=== PATIENT | male | born 1940 | race Caucasian/White ===

== ENCOUNTER 2019-11-18 16:03 | Inpatient (IN) | payer OTHER ==
--- NOTE | 2019-11-18 17:12 | PDOC ---
Documentation entered by Caesar Jacobs SCRIBE, acting as scribe for Eda Shaikh MD. Eda Shaikh MD: This documentation has been prepared by the Zachery hoffman Angel, SCRIBE, under my direction and personally reviewed by me in its entirety. I confirm that the documentation accurately reflects all work, treatment, procedures, and medical decision making performed by me. Attending Attestation - Resident Resident Name: Allen Terrazas - ED Attending Attestation I have performed the following: I have examined & evaluated the patient, The case was reviewed & discussed with the resident, I agree w/resident's findings & plan, Exceptions are as noted - HPI HPI: 11/18/19 21:29 The patient is a 79 year old male with a significant past medical history of FTT, dementia, HTN, BPH, MDD, hypothyroidism, PVD who presents [facility] the [facility] from [facility] with 4 of coffee-ground emesis. Patient is unresponsive to name and is unable to provide history. - Physicial Exam PE: 11/18/19 21:[address] Whyte's physical exam cachetic 79 yo male BIBA from [facility] with report of coffee ground emesis head ncat extremities muscle wasting abdomen ++tenderness skin no lacerations, no abscesses neuro nonverbal at baseline 11/18/19 22:01 - Medical Decision Making 11/18/19 21:53 ct scan of abdomen/pelvic: reveals a small bowel obstruction pt admitted Discharge - Discharge Information Problems reviewed: Yes Clinical Impression/Diagnosis: SBO (small bowel obstruction) - Follow up/Referral - Patient Discharge Instructions - Post Discharge Activity
[2019-11-18 17:55] LABS: INR 1.13 (0.83-1.09); PROTHROMBIN TIME (PATIENT) 13.4 SEC (9.7-13.0)
[2019-11-18] MEDS ORDERED: SODIUM CHLORIDE 0.9% 500 ML INFUS.BAG IV ONE (17:55)
[2019-11-18] MEDS ORDERED: ONDANSETRON 4 MG/2 ML VIAL IVPUSH ONE (17:56)
[2019-11-18 17:58] LABS: ACTIVATED PTT 28.7 SECONDS (25.2-36.5)
[2019-11-18 17:59] LABS: BASO % 0.1 % (0-2.0); HEMATOCRIT 42.9 % (35.4-49); HEMOGLOBIN 14.5 GM/dL (11.7-16.9); LYMPH % 15.5 % (8-40); MCH 30.7 pg (25.7-33.7); MCHC 33.7 g/dl (32.0-35.9); MEAN CELL VOLUME 91.1 fl (80-96); MONO % 5.3 % (3.8-10.2); NEUT % 79.1 % (42.8-82.8); PLATELET COUNT 213 K/MM3 (134-434); RBC 4.71 M/mm3 (4.00-5.60); RDW 17.1 % (11.9-15.9); RETICULOCYTES 0.81 % (0.5-1.5); WHITE BLOOD COUNT 10.1 K/mm3 (4.0-10.0)
[2019-11-18 18:15] LABS: ALBUMIN 3.6 g/dl (3.4-5.0); ALK PHOS 86 U/L (45-117); ANION GAP 10 MMOL/L (8-16); BILIRUBIN,TOTAL 1.2 mg/dL (0.2-1); BLOOD UREA NITROGEN 44.9 mg/dL (7-18); CHLORIDE 104 mmol/L (98-107); CO2 28 mmol/L (21-32); CREATININE 1.2 mg/dL (0.55-1.3); GLUCOSE,RANDOM 156 mg/dL (74-106); POTASSIUM 3.9 mmol/L (3.5-5.1); SGOT/AST 13 U/L (15-37); SGPT/ALT 17 U/L (13-61); SODIUM 143 mmol/L (136-145); TOT PROT 7.5 g/dl (6.4-8.2)
--- NOTE | 2019-11-18 18:15 | PDOC ---
History of Present Illness - General Chief Complaint: Coffee Ground Emesis Stated Complaint: Nausea/Vomiting Time Seen by Provider: 11/18/19 16:33 - History of Present Illness Initial Comments: 11/18/19 18:07 79M with PMH of FTT, dementia, HTN, BPH, MDD, hypothyroidism, PVD send from [place] for 4 days of coffee-ground emesis. They did a KUB which was concerning for partial SBO. Patient is not responding to name, and unable to obtain history. Daughter at bedside states this is his baseline mental status. PMH/PSH: as above Home Medications Medication Instructions Recorded Ascorbic Acid [Vitamin C -] 500 mg PO DAILY 11/18/19 Cholecalciferol (Vitamin D3) 25 mcg PO DAILY 11/18/19 [Vitamin D3] Levothyroxine [Synthroid -] 25 mcg PO DAILY 11/18/19 Allergies Allergy/AdvReac Type Severity Reaction Status Date / Time No Known Allergies Allergy Verified 11/18/19 16:12 ROS: unable to obtain secondary to patient's mental status PE: General: not responding to verbal stimuli, cachectic, breathing comfortably, no acute distress HEENT: PERRLA, nares patent, some dried blood at lips Neck: no masses or JVD Heart: RRR, no murmurs Lungs: CTAB Abdomen: guarding. unable to assess tenderness Extremities: muscle wasting Neuro: moving all extremities Vital Signs Temp Pulse Resp BP Pulse Ox 99.2 F 126 H 20 131/93 95 11/18/19 16:14 11/18/19 16:14 11/18/19 16:14 11/18/19 16:14 11/18/19 16:14 MDM: 79M with PMH of FTT, dementia, HTN, BPH, MDD, hypothyroidism, PVD send from CT for 4 days of coffee-ground emesis. They did a KUB which was concerning for partial SBO. Vitals notable for tachycardia to 126. DDx includes SBO, infectious abdominal process, pneumonia, UTI, ulcer. -EKG -CXR -CBC, CMP, coags, T&S, UA/UC -CT A/P with IV contrast 11/18/19 22:58 EKG: Sinus tachycardia, rate 117, normal axis, QTc 446, no ischemic ST-T changes CXR: infiltrates suspicious for pneumonia CT A/P with IV contrast: CT A/P: distal SBO with promixal dilitation to 4cm Labs: WBC 10.1 without left shift, Hgb normal. BUN 44.9. No emergent values. Laboratory Tests 11/18/19 11/18/19 11/18/19 17:20 17:20 17:20 WBC 10.1 H RBC 4.71 Hgb 14.5 Hct 42.9 MCV 91.1 MCH 30.7 MCHC 33.7 RDW 17.1 H Plt Count 213 MPV 8.0 Absolute Neuts (auto) 8.0 Neutrophils % 79.1 Neutrophils % (Manual) 54.6 Band Neutrophils % 18.2 Lymphocytes % 15.5 Lymphocytes % (Manual) 22.2 Monocytes % 5.3 Monocytes % (Manual) 4 Eosinophils % 0.0 Eosinophils % (Manual) 0.0 Basophils % 0.1 Basophils % (Manual) 0.0 Myelocytes % (Man) 1 Promyelocytes % (Man) 0 Blast Cells % (Manual) 0 Nucleated RBC % 2 H Metamyelocytes 0 Hypochromia 0 Toxic Granulation 0 Dohle Bodies 0 Platelet Estimate Normal Polychromasia 0 Poikilocytosis 0 Basophilic Stippling 0 Anisocytosis 0 Microcytosis 0 Macrocytosis 0 Spherocytes 0 Sickle Cells 0 Target Cells 0 Tear Drop Cells 0 Ovalocytes 0 Stomatocytes 0 Helmet Cells 0 [place] Bodies 0 [place] Rings 0 Sherri Cells 0 Acanthocytes (Spur) 0 Rouleaux 0 Fragmented RBCs 0 Schistocytes 0 Retic Count 0.81 PT with INR 13.40 H INR 1.13 H PTT (Actin FS) 28.7 Sodium 143 Potassium 3.9 Chloride 104 Carbon Dioxide 28 Anion Gap 10 BUN 44.9 H Creatinine 1.2 Est GFR (CKD-EPI)AfAm 67.20 Est GFR (CKD-EPI)NonAf 57.98 Random Glucose 156 H Calcium 10.0 Total Bilirubin 1.2 H AST 13 L ALT 17 Alkaline Phosphatase 86 Creatine Kinase 52 Troponin I < 0.02 Total Protein 7.5 Albumin 3.6 Blood Type Antibody Screen Will admit for SBO and pneumonia. Will cover with vanc/zosyn/azithro Spoke with surgeon and daughter. Plan for NG tube suction, CT A/P with oral contrast through NG tube, and possible surgical intervention. Patient had a rectal temp of 100.6, and is therefore septic. Antibiotics already on board -Given 1000mg tylenol IV Failed to pass NG tube Signed out to admitting team who accepted the patient Past History - Medical History Allergies/Adverse Reactions: Allergies Allergy/AdvReac Type Severity Reaction Status Date / Time No Known Allergies Allergy Verified 11/18/19 16:12 Home Medications: Ambulatory Orders Ascorbic Acid [Vitamin C -] 500 mg PO DAILY 11/18/19 Cholecalciferol (Vitamin D3) [Vitamin D3] 25 mcg PO DAILY 11/18/19 Levothyroxine [Synthroid -] 25 mcg PO DAILY 11/18/19 COPD: (dysphagia) HTN: Yes Seizures: Yes (depression) Thyroid Disease: Yes (hypo) Other medical history: failure to thrive PVD - Psycho-Social/Smoking History Smoking History: Smoker current status UNK Have you smoked in the past 12 months: No Information on smoking cessation initiated: No - Substance Abuse Hx (Audit-C & DAST Scrn) How often the patient has a drink containing alcohol: Never Score: In Men: 4 or > Positive; In Women: 3 or > Positive: 0 Screen Result (Pos requires Nsg. Audit-10AR): Negative In the last yr the pt used illegal drug/Rx for NonMed reason: No Score: Yes response is considered Positive: 0 Screen Result (Positive result requires Nsg. DAST-10): Negative *Physical Exam - Vital Signs Last Vital Signs Temp Pulse Resp BP Pulse Ox 99.2 F 126 H 20 131/93 95 11/18/19 16:14 11/18/19 16:14 11/18/19 16:14 11/18/19 16:14 11/18/19 16:14 ED Treatment Course - LABORATORY CBC & Chemistry Diagram: 11/19/19 05:30 11/19/19 05:30 - ADDITIONAL ORDERS Additional order review: Laboratory Results 11/18/19 17:20 PT with INR 13.40 H INR 1.13 H PTT (Actin FS) 28.7 11/18/19 17:20 RBC 4.71 MCV 91.1 MCHC 33.7 RDW 17.1 H MPV 8.0 Neutrophils % 79.1 Lymphocytes % 15.5 Monocytes % 5.3 Eosinophils % 0.0 Basophils % 0.1 - RADIOLOGY Radiology Studies Ordered: Category Date Time Status ABDOMEN & PELVIS CT WITH CONTR [CT] Stat CT Scan 11/18/19 17:53 Ordered - Medications Given in the ED: ED Medications Discontinued Medications Generic Name Dose Route Start Last Admin Trade Name Adamq PRN Reason Stop Dose Admin Ondansetron HCl 4 mg 11/18/19 17:56 11/18/19 18:02 Zofran Injection IVPUSH 11/18/19 17:57 4 mg ONCE ONE Administration Sodium Chloride 1,000 ml 11/18/19 17:55 11/18/19 18:02 Normal Saline - IV 11/18/19 17:56 1,000 ml ONCE ONE Administration Discharge - Discharge Information Problems reviewed: Yes Clinical Impression/Diagnosis: SBO (small bowel obstruction) Pneumonia Qualifiers: Pneumonia type: due to unspecified organism Laterality: unspecified laterality Lung location: unspecified part of lung Qualified Code(s): J18.9 - Pneumonia, unspecified organism - Follow up/Referral - Patient Discharge Instructions - Post Discharge Activity
--- OUTSIDE RECORDS SUMMARY | 2019-11-18 18:45 | XMS ---
:1940 Author Organization [facility] Care Team Providers Name Role Phone NIKKI MO Unavailable Unavailable Kolanuvada Unavailable [email or web address] Kolanuvada Unavailable [email or web address] Kolanuvada Unavailable [email or web address] Kolanuvada Unavailable [email or web address] Kolanuvada Unavailable [email or web address] Kolanuvada Unavailable [email or web address] Kolanuvada Unavailable [email or web address] Kolanuvada Unavailable [email or web address] Re-disclosure Warning The records that you are about to access may contain information from federally- assisted alcohol or drug abuse programs. If such information is present, then the following federally mandated warning applies: This information has been disclosed to you from records protected by federal confidentiality rules (42 CFR part 2). The federal rules prohibit you from making any further disclosure of this information unless further disclosure is expressly permitted by the written consent of the person to whom it pertains or as otherwise permitted by 42 CFR part 2. A general authorization for the release of medical or other information is NOT sufficient for this purpose. The Federal rules restrict any use of the information to criminally investigate or prosecute any alcohol or drug abuse patient.The records that you are about to access may contain highly sensitive health information, the redisclosure of which is protected by Article 27-F of the [facility] Public Health law. If you continue you may haveaccess to information: Regarding HIV / AIDS; Provided by facilities licensed or operated by the [facility] Office of Mental Health; or Provided by the [facility] Office for People With Developmental Disabilities. If such information is present, then the following [facility] mandated warning applies: This information has been disclosed to you from confidential records which are protected by state law. State law prohibits you from making any further disclosure of this information without the specific written consent of the person to whom it pertains, or as otherwise permitted by law. Any unauthorized further disclosure in violation of state law may result in a fine or shelter sentence or both. A general authorization for the release of medical or other information is NOT sufficient authorization for further disclosure. Allergies and Adverse Reactions Type Description Substance Reaction Status Data Source(s ) No Known Allergies No Known Allergies PCC ([facility]) To Be Determined To Be Determined PC C ([facility]) Encounters Encounter Providers Location Date Indications Data Source(s ) Inpatient Attender: Shante 05/27/2019 PCC ([facility]o 04:00:00 PM [facility]) EDT Patient admitted. Inpatient 08/29/2018 08:14:00 [facility] Inpatient 08/29/2018 08:14:00 [facility] Inpatient Attender: CHEPE 08/19/2018 03:05:00 ALEJANDRO,HYPOTH [facility] PM EDT - 08/23/2018 [facility] 07:50:00 PM EDT [facility] [employer] [employer] ALEJANDRO,HYPOTHYRODISM,DEMENTI Outpatient Attender: CHEPE 08/18/2018 ALEJANDRO,HYPOTHYRODISM,D EMENTI [facility] 03:43:00 AM EDT [facility] ALEJANDRO,HYPOTHYRODISM,DEMENTI Emergency 08/17/2018 06:59:00 PM EDT DIMENTIA AND FALL [facility] Corporati on DIMENTIA AND FALL Medications Medication Brand Start Product Dose Route Administrative Pharmacy [facility] Indications Reaction Description Data Name Date Form Instructions Instructions Source(s) Tamsulosin 987359 complet [place] [0.4 mg 546 ed [facility] Capsule Health SR]: 0.4 MG Care Oral Q10PM Corporati o n Discharge complet [facility] celine Medications ed [facility] are Health [facility] Care . Corporatio n 24 HR Memant complet [place] e Memantine ine ed [facility] hydrochlori [28 Health de 28 MG mg]: 1 Care Extended Capsul Corporati o Release e Oral n Oral DAILY Capsule Memantine [28 mg]: 1 Capsule Oral DAILY Levothyroxi Levo-T complet [place] ne Sodium (Levot ed [facility] 0.05 MG hyroxi Health Oral Tablet ne) Care Levo-T [50 Corporatio (Levothyrox mcg n ine) [50 Tablet mcg ]: 1 Tablet]: 1 Tablet Tablet Oral Oral DAILY DAILY Aspirin 81 Aspir- complet [place] MG Delayed Low ed [facility] Release (Aspir Health Oral Tablet in) Care Aspir-Low [81 Corporatio (Aspirin) mg]: 1 n [81 mg]: 1 Tablet Tablet Oral Oral DAILY DAILY PRINIVIL complet [place] EQUIV (Free ed r [facility] Text Health Medication) Care [20 MG Corporatio Tablet]: 20 n MG Oral Q10AM WATER complet [place] (ORAL) ed [facility] (Free Text Health Medication) Care [250 ML Corporatio Bottle]: n 250 ML Oral Q6H quetiapine Quetia complet [place] 50 MG Oral pine [facility] Tablet [50 mg Health Quetiapine Tablet Care [50 mg ]: 50 Corporatio Tablet]: 50 MG n MG Oral Oral Q12H Q12H Insurance Providers Payer name Policy type Policy ID Covered Covered republican's Policy P jovi / Coverage republican ID relationship to [employer] ormation type marinelli Medicaid FIELD [facility] None Problems, Conditions, and Diagnoses Code Display Name Description Problem Type Effective Data Sour ce(s) Dates I73.9 Peripheral PERIPHERAL Diagnosis 09/24/2019 P[facility] ([facility] 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 thrive THRIVE 12:00:00 AM [facility] EDT Home) I11.9 Hypertensive heart HYPERTENSIVE HEART Diagnosis 0 PCC ([facility] disease without DISEASE WITHOUT 12:00:00 AM [facility] heart failure HEART FAILURE EDT Home) E03.9 Hypothyroidism, HYPOTHYROIDISM, Diagnosis 05/27/2019 PCC (St. unspecified UNSPECIFIED 12:00:00 AM [facility] EDT Home) F32.9 Major depressive MAJOR DEPRESSIVE Diagnosis 05/27/2019 PC C (St. disorder, single DISORDER, SINGLE 12:00:00 AM [facility] episode, EPISODE, EDT Home) unspecified UNSPECIFIED N40.0 Benign prostatic BENIGN PROSTATIC Diagnosis 05/27/2019 PC C (St. hyperplasia HYPERPLASIA 12:00:00 AM [facility] without lower WITHOUT LOWER EDT Home) urinary tract URINARY TRACT symptoms SYMPTOMS R13.10 Dysphagia, DYSPHAGIA, Diagnosis 05/27/2019 PCC (St. unspecified UNSPECIFIED 12:00:00 AM [facility] EDT Home) F03.90 Unspecified UNSPECIFIED Diagnosis 05/27/2019 PCC (St. 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 08/23/2018 [place] (current) use of (CURRENT) USE OF 07:50:00 PM [employer] aspirin ASPIRIN EDT [facility] G30.9 Alzheimer's ALZHEIMER'S Diagnosis 08/23/2018 [place] disease, DISEASE, 07:50:00 PM [facility] unspecified UNSPECIFIED EDT [facility] R33.9 Retention of RETENTION OF Diagnosis 08/23/2018 [facility] r urine, unspecified URINE, UNSPECIFIED 07:50:00 PM [facility] EDT [facility] E86.0 Dehydration DEHYDRATION Diagnosis 08/23/2018 [place] 07:50:00 PM [facility] EDT [facility] I10 Essential ESSENTIAL Diagnosis 08/23/2018 [place] (primary) (PRIMARY) 07:50:00 PM [facility] hypertension HYPERTENSION EDT [facility] E03.9 Hypothyroidism, HYPOTHYROIDISM, Diagnosis 08/23/2018 [employer] unspecified UNSPECIFIED 07:50:00 PM [facility] th EDT [facility] F02.81 Dementia in other DEMENTIA IN OTH Diagnosis 08/23/2018 [facility] DISEASES CLASSD 07:50:00 PM [facility] classified ELSWHR W EDT Care elsewhere with BEHAVIORAL DISTURB Co rporation behavioral disturbance N17.9 Acute kidney ACUTE KIDNEY Diagnosis 08/23/2018 Pankaj r failure, FAILURE, 07:50:00 PM [facility] unspecified UNSPECIFIED EDT [employer] F01.51 Vascular dementia VASCULAR DEMENTIA Diagnosis 08/19/2018 [place] with behavioral WITH BEHAVIORAL 03:05:00 PM [facility] disturbance DISTURBANCE EDT Care [facility]UO Results ID Date Data Source [id number] 06/25/2019 12:00:00 PM EDT [facility] Name Value Range Interpretation Description Data Sup porting Code Source(s) Document(s ) SARS CoV-2 [facility] Interpretation This lab was ordered by [facility] and reported by [employer]. ID Date Data Source [id number] 08/23/2018 06:09:58 PM EDT [facility] [id number] Corporation Name Value Range Interpretation Description Data Sup porting Code Source(s) Document(s ) Renal/ (PACSIMAGE <td> 08/22/2018 [place] [facility] 11:23</td><td> [facility] ) Final Renal/Bladder US Care Result </td><td>Tomorrow Name: anabela SEYMOUR MRN: styleCode="Itali [id number] Sex: M cs">(PACSIMAGE : 1940 Location: Admitting )</paragraph><br Physician: />
Final TEJINDERPAL Result MO

Requesting Name: Physician LION: ALEJANDRINA HOLLAND
MRN: Exam: US [id number] Sex: M BLADDER/RENAL
08/22/2018 11:39 : CLINICAL 1940 INFORMATION: ALEJANDRO Location: TECHNIQUE:
Sonogram of the Admitting kidneys and Physician: bladder with TEJINDERPAL silva scale MO images and color
Doppler flow. Requesting COMPARISON: Physician: 08/19/2018 CARLOS HOLLAND FINDINGS: The right kidney

is small, with Exam: US relatively BLADDER/RENAL normal 08/22/2018 11:39 echotexture, measuring 8.8 cm

in longitudinal CLINICAL dimension; INFORMATION: ALEJANDRO correlate with patient's body

habitus. No TECHNIQUE: right-sided Sonogram of the hydronephrosis kidneys and is visualized. bladder with The left silva scale kidney is small,
with relatively images and color normal Doppler flow. echotexture, measuring 8.3 cm

in longitudinal COMPARISON: dimension; 08/19/2018 correlate with

patient body FINDINGS: habitus. No

left-sided The right hydronephrosis kidney is small, is visualized. with relatively The urinary normal bladder is echotexture, decompressed,
limiting measuring 8.8 cm assessment. in longitudinal IMPRESSION: dimension; No correlate with hydronephrosis. patient's
Resident body habitus. No Radiologist: right-sided Patel Mejía hydronephrosis Resident is visualized. Radiologistt Attending

Radiologist: The left kidney Beatris Moore is small, with MD Finalizing relatively Radiologist: normal Beatris Moore echotexture, Transcribed
Date: 08/22/2018 measuring 8.3 cm 11:42 in longitudinal Finalized Date: dimension; 08/22/2018 13:03 correlate with patient
body habitus. No left-sided hydronephrosis is visualized.

The urinary bladder is decompressed, limiting assessment.

IMPRESSION:

No hydronephrosis.

< br/>

<b r/> Resident Radiologist: Ptael Mejía MD Resident Radiologistt
Attending Radiologist: Beatris Moore MD
Finalizing Radiologist: Beatris Moore MD
Transcribed Date: 08/22/2018 11:42
Finalized Date: 08/22/2018 13:03

</td> ID Date Data Source [id number] 08/23/2018 06:09:58 PM EDT [facility] [id number] Corporation Name Value Range Interpretation Description Data Sup porting Code Source(s) Document(s ) Magnesium 2.1 mg/dL 1.6-2.6 <td> [place] [Mass/volume] mg/dL 08/17/2018 [facility] in Serum or 23:39</td><td Health Care Plasma > Magnesium Corporation Level </td><td> 2.1
(1.6-2.6) mg/dL </td> Leukocytes 7.3 k/mm3 4.8-10. <td> [place] [#/volume] in 8 k/mm3 08/23/2018 [facility] Blood by 06:45</td><td Health Care Automated count > WBC Corporation </td><td> 7.3
(4.8-10.8) k/mm3 </td> Erythrocyte 31.8 pg 27.0-31 <td> [place] mean .5 pg 08/23/2018 [facility] corpuscular 06:45</td><td Health Care hemoglobin > MCH [employer] [Entitic mass] </td><td><par by Automated agraph count styleCode="Devon ld"> 31.8 H </paragraph>< br/> (27.0-31.5) pg </td> Erythrocyte 98.1 fL 80.0-94 <td> [place] mean .0 fL 08/23/2018 [facility] corpuscular 06:45</td><td Health Care volume [Entitic > MCV Corporation volume] by </td><td><par Automated count agraph styleCode="Devon ld"> 98.1 H </paragraph>< br/> (80.0-94.0) fL </td> Erythrocytes 3.74 m/mm3 4.70-6. <td> [place] [#/volume] in 10 08/23/2018 [facility] Blood m/mm3 06:45</td><td Health Care > RBC Corporation </td><td><par agraph styleCode="Devon ld"> 3.74 L </paragraph>< br/> (4.70-6.10) m/mm3 </td> Hematocrit 36.7 % 40.8-46 <td> [place] [Volume .9 % 08/23/2018 [facility] of 06:45</td><td Health Care Blood by > HCT Corporation Automated count </td><td><par agraph styleCode="Devon ld"> 36.7 L </paragraph>< br/> (40.8-46.9) % </td> Erythrocyte 32.4 % 32.0-36 <td> [place] mean .0 % 08/23/2018 [facility] corpuscular 06:45</td><td Health Care hemoglobin > MCHC FAGUO concentration </td><td> [Mass/volume] in Blood from 32.4 Fetus by Automated count
(32.0-36.0) % </td> Hemoglobin 11.9 g/dL 14.0-18 <td> [place] [Mass/volume] .0 g/dL 08/23/2018 [facility] in Blood 06:45</td><td Health Care > HGB Corporation </td><td><par agraph styleCode="Devon ld"> 11.9 L </paragraph>< br/> (14.0-18.0) g/dL </td> Sodium 138 mEq/L 135-145 <td> [place] [Moles/volume] mEq/L 08/23/2018 [facility] in Serum or 06:44</td><td Health Care Plasma > F[facility] Sodium-Serum </td><td> 138
(135-145) mEq/L </td> Glucose 91 mg/dL 70-105 <td> [place] [Mass/volume] mg/dL 08/23/2018 [facility] in Blood 06:44</td><td Health Care > FAGUO Glucose-Serum </td><td> 91
(70-105) mg/dL </td> Platelet mean 10.9 fL 9.8-12. <td> [place] volume [Entitic 8 fL 08/23/2018 [facility] volume] in 06:45</td><td Health Care Blood by > MPV FAGUO Automated count </td><td> 10.9
(9.8-12.8) fL </td> Erythrocyte 12.8 % 11.5-14 <td> [place] distribution .5 % 08/23/2018 [facility] width [Entitic 06:45</td><td Health Care volume] by > RDW Corporation Automated count </td><td> 12.8
(11.5-14.5) % </td> Platelets 183 k/mm3 160-410 <td> [place] [#/volume] in k/mm3 08/23/2018 [facility] Blood by 06:45</td><td Health Care Automated count > Platelet Corporation Count </td><td> 183
(160-410) k/mm3 </td> Chloride 107 mEq/L 98-107 <td> [place] [Moles/volume] mEq/L 08/23/2018 [facility] in Serum or 06:44</td><td Health Care Plasma > Chloride Corporation </td><td> 107
(98-107) mEq/L </td> Potassium 4.6 mEq/L 3.5-5.1 <td> [place] [Moles/volume] mEq/L 08/23/2018 [facility] in Serum or 06:44</td><td Health Care Plasma > Corporation Potassium-Ser um </td><td> 4.6
(3.5-5.1) mEq/L </td> Carbon dioxide, 24 mEq/L 22-30 <td> [place] total mEq/L 08/23/2018 [facility] [Moles/volume] 06:44</td><td Health Care in Serum or > CO2 Corporation Plasma </td><td> 24
(22-30) mEq/L </td> Anion gap in 7 mEq/L 7-13 <td> [place] Serum or Plasma mEq/L 08/23/2018 [facility] 06:44</td><td Health Care > Anion Gap FAG[facility]O </td><td> 7
(7-13) mEq/L </td> Urea nitrogen 45 mg/dL 6-22 <td> [place] [Mass/volume] mg/dL 08/23/2018 [facility] in Blood 06:44</td><td Health Care > BUN [facility] </td><td><par agraph styleCode="Devon ld"> 45 H </paragraph>< br/> (6-22) mg/dL </td> Creatinine 1.06 mg/dL 0.72-1. <td> [place] [Moles/volume] 25 08/23/2018 [facility] in Serum or mg/dL 06:44</td><td Health Care Plasma > Creatinine. Corporation </td><td> 1.06
(0.72-1.25) mg/dL </td> Hemolysis index No <td> [facility] Serum or Hemolysis 08/23/2018 [facility] Plasma 06:44</td><td Health Care > Hemolysis Corporation Index </td><td> No Hemolysis
</td> Calcium 9.4 mg/dL 8.6-10. <td> [place] [Mass/volume] 2 mg/dL 08/23/2018 [facility] in Blood 06:44</td><td Health Care > Calcium Corporation </td><td> 9.4
(8.6-10.2) mg/dL </td> Lipemic index No Lipemia <td> [facility] or 08/23/2018 [facility] Plasma 06:44</td><td Health Care > Lipemia Corporation Index </td><td> No Lipemia
</td> Icteric index Not Icteric <td> [facility] or 08/23/2018 [facility] Plasma 06:44</td><td Health Care > Icteric Corporation Index </td><td> Not Icteric
</td> Glucose Negative <td> [place] [Presence] in 08/22/2018 [facility] Urine by Test 12:10</td><td Health Care strip > Glucose_ Corporation </td><td> Negative
(NEGATIVE) </td> Protein Negative <td> [place] [Presence] in 08/22/2018 [facility] Urine by 12:10</td><td Health Care Automated test > Protein Corporation strip Qualitative </td><td> Negative
(NEGATIVE) </td> Phosphate 3.2 mg/dL 2.3-4.7 <td> [place] [Mass/volume] mg/dL 08/23/2018 [facility] in Serum or 06:44</td><td Health Care Plasma > Inorganic Corporation Phosphorus </td><td> 3.2
(2.3-4.7) mg/dL </td> Specific 1.023 {} 1.000-1 <td> [place] gravity of .035 08/22/2018 [facility] Urine by Test 12:10</td><td Health Care strip > Specific Corporation [place] </td><td> 1.023
(1.000-1.035) </td> Appearance of Clear <td> [place] Urine 08/22/2018 [facility] 12:10</td><td Health Care > Appearance Corporation </td><td> Clear
(CLEAR) </td> Leukocyte Negative <td> [place] esterase 08/22/2018 [facility] [Presence] in 12:10</td><td Health Care Urine by Test > Leukocytes Corporation strip Esterase </td><td> Negative
(NEGATIVE) </td> Urobilinogen 0.2 mg/dL 0.0-2.0 <td> [place] [Presence] in mg/dL 08/22/2018 [facility] Urine by 12:10</td><td Health Care Automated test > Corporation strip Urobilinogen </td><td> 0.2
(0.0-2.0) mg/dL </td> Leukocytes 3 /HPF 0-5 <td> [place] [Presence] in /HPF 08/22/2018 [facility] Urine by 12:10</td><td Health Care Automated > WBC Corporation </td><td> 3
(0-5) /HPF </td> Epithelial RARE <td> [place] cells [#/area] FEW 08/22/2018 [facility] in Urine 12:10</td><td Health Care sediment by > Epithelial Corporation Automated count Cells </td><td> RARE
/LPF
FEW

/LPF </td> Bacteria RARE <td> [place] [#/area] in 08/22/2018 [facility] Urine sediment 12:10</td><td Health Care by Microscopy > Bacteria Corporation high power </td><td> field RARE
(NONE SEEN) /HPF </td> Nitrite Negative <td> [place] [Presence] in 08/22/2018 [facility] Urine by Test 12:10</td><td Health Care strip > Nitrites Corporation </td><td> Negative
(NEGATIVE) </td> Erythrocytes 1 /HPF 0-2 <td> [place] [#/area] in /HPF 08/22/2018 [facility] Urine sediment 12:10</td><td Health Care by Automated > RBC Corporation count </td><td> 1
(0-2) /HPF </td> Magnesium 2.2 mg/dL 1.6-2.6 <td> [place] [Mass/volume] mg/dL 08/23/2018 [facility] in Serum or 06:44</td><td Health Care Plasma > Magnesium [employer] Level </td><td> 2.2
(1.6-2.6) mg/dL </td> Mucous RARE <td> [place] < FEW 08/22/2018 [facility] 12:10</td><td Health Care > Mucous Corporation </td><td> RARE
/LPF
< FEW

/LPF </td> Hyaline casts 1.00 /LPF NONE <td> [place] [#/area] in SEEN 08/22/2018 [facility] Urine sediment /LPF 12:10</td><td Health Care by Microscopy > Hyaline Corporation high power Cast field </td><td> 1.00
(NONE SEEN) /LPF </td> ID Date Data Source [id number] 08/18/2018 09:45:04 AM EDT [facility] [id number] Corporation Name Value Range Interpretation Description Data Source(s ) Supporting Code Document(s ) ABO-Rh Type A NEG <td> [place] 08/17/2018 [facility] 23:50</td><td> Care ABO-Rh Type Corporation </td><td> A NEG
</td> Specimen 08/21/19 <td> [place] expiration 19 23:59 08/17/2018 [facility] date of Blood 23:50</td><td> Care Specimen Corporation Expiration Date </td><td> 08/20/2018 23:59
</td> Antibody NEG <td> [place] Screen 08/17/2018 [facility] 23:50</td><td> Care Antibody Corporation Screen </td><td> NEG
</td> Procedure Social History Code Duration Value Status Description Data Source(s ) Smoking Never smoker completed Never smoker [facility] Vital Signs ID Date Data Source UNK Name Value Range Interpretation Code Description Data Source(s) Diastolic blood 56 {} Normal (applies to 56 {} [place] pressure non-numeric results) [facility] ty [facility] Corpor[facility] on Systolic blood 100 {} Normal (applies to 100 {} [place] pressure non-numeric results) Coun ty [facility] Care Corporati on First Respiration 16.0000 {} Normal (applies to 16.0000 {} [place] rate Set non-numeric results) Coun ty Health Care Corporati on Heart rate 74.0000 {} Normal (applies to 74.0000 {} [place] non-numeric results) Coun ty [facility] Care Corporati on Body temperature 97.2000 {} Normal (applies to 97.2000 {} [place] non-numeric results) Coun ty Health Care Corporati on Diastolic blood 66 {} Normal (applies to 66 {} [place] pressure non-numeric results) Coun ty [facility] Care Corporati on Systolic blood 112 {} Normal (applies to 112 {} [place] pressure non-numeric results) Coun ty Health Care Corporati on First Respiration 18.0000 {} Normal (applies to 18.0000 {} [place] rate Set non-numeric results) Coun ty [facility] Care Corporati on Heart rate 73.0000 {} Normal (applies to 73.0000 {} [place] non-numeric results) Coun ty [facility] Care Corporati on Body temperature 98.1000 {} Normal (applies to 98.1000 {} [place] non-numeric results) Coun ty Health Care Corporati on wt - obtain Normal (applies to {} [place] non-numeric results) Coun ty Health Care Corporati on weight - kg 60.0000 {} Normal (applies to 60.0000 {} [place] non-numeric results) Coun ty Health Care Corporati on
[2019-11-18 20:30] LABS: ANISOCYTOSIS 0; HELMET CELLS 0; HOWELL-JOLLY BODIES 0; MACROCYTOSIS 0; OVALOCYTE 0; PLATELET ESTIMATE NORMAL; ROULEAU 0; SICKELED CELLS 0; TARGET CELLS 0; TEAR DROP CELLS 0; TOXIC GRANULATION 0
[2019-11-18] MEDS ORDERED: VANCOMYCIN 1 GM in D5W (PRE-DOCKED) 1,000 MG/250 ML IVPB ONE (21:06)
[2019-11-18] MEDS ORDERED: PIPERACILLIN/TAZOB 4.5 GM 4.5 GM in DEXTROSE 5%-WATER 100 ML IVPB ONE (21:07)
[2019-11-18] MEDS ORDERED: AZITHROMYCIN IVPB 500 MG in DEXTROSE 5%-WATER - 250 ML IVPB ONE (21:08)
[2019-11-18] MEDS ORDERED: AZITHROMYCIN IVPB 500 MG/250 ML BAG IVPB ONE (21:25)
[2019-11-18] MEDS ORDERED: VANCOMYCIN 1 GRAM (PRE-DOCKED) 1,000 MG/250 ML BAG IVPB ONE ×2 (21:25→21:47)
[2019-11-18] MEDS ORDERED: PIPERACILLIN/TAZOB 4.5 GM 4.5 GM/100 ML BAG IVPB ONE (21:25)
--- OUTSIDE RECORDS SUMMARY | 2019-11-18 21:58 | XMS ---
:1940 Author Organization [facility] Care Team Providers Name Role Phone NIKKI MO Unavailable Unavailable Kolanuvada Unavailable [email or web address] Kolanuvada Unavailable [email or web address] Kolanuvada Unavailable [email or web address] Kolanuvada Unavailable [email or web address] Kolanuvada Unavailable [email or web address] Kolanuvada [...] is protected by Article 27-F of the [place] State Public Health law. If you continue you may haveaccess to information: Regarding HIV / AIDS; Provided by facilities licensed or operated by the [facility] Office of Mental Health; or Provided by the [facility] Office for People With Developmental Disabilities. If such information is present, then the following [facility] mandated warning applies: This information has been [...] law may result in a fine or fpc sentence or both. A general authorization for the release of medical or other information is NOT sufficient authorization for further disclosure. Allergies and Adverse Reactions Type Description Substance Reaction Status Data Source(s ) No Known Allergies No Known Allergies PCC ([facility]) To Be Determined To Be Determined PC C ([facility]) Encounters Encounter Providers Location Date Indications Data Source(s ) Inpatient Attender: Arminblayne 05/27/2019 PCC ([facility] Krystleeveliotiff 04:00:00 PM [facility]) EDT Patient admitted. Inpatient 08/29/2018 08:14:00 [facility] Inpatient 08/29/2018 08:14:00 [facility] Inpatient Attender: CHEPE 08/19/2018 03:05:00 ALEJANDRO,HYPOTH [facility] PM EDT - 08/23/2018 [facility] 07:50:00 PM EDT [facility] on ALEJANDRO,HYPOTHYRODISM,DEMENTI Outpatient Attender: CHEPE 08/18/2018 ALEJANDRO,HYPOTHYRODISM,D EMENTI [facility] 03:43:00 AM EDT [facility] ALEJANDRO,HYPOTHYRODISM,DEMENTI Emergency 08/17/2018 06:59:00 PM EDT DIMENTIA AND F[facility] DIMENTIA AND FALL Medications Medication Brand Start Product Dose Route Administrative Pharmacy [facility] Indications Reaction Description Data Name Date Form Instructions Instructions Source(s) Tamsulosin [id number] complet [place] [0.4 mg 546 ed [facility] Capsule Health SR]: 0.4 MG Care Oral Q10PM Corporati o n Discharge complet [facility] celine Medications ed [facility] are Health [facility] Care . Corporatio n 24 HR Memant complet [place] e Memantine ine ed [facility] hydrochlori [28 Health de 28 MG mg]: 1 Care Extended Capsul Corporati o Release e Oral n Oral DAILY Capsule Memantine [28 mg]: 1 Capsule Oral DAILY Levothyroxi Levo-T complet [place]ste ne Sodium (Levot ed [facility] 0.05 MG hyroxi Health Oral Tablet ne) Care Levo-T [50 Corporatio (Levothyrox mcg n ine) [50 Tablet mcg ]: 1 Tablet]: 1 Tablet Tablet Oral Oral DAILY DAILY Aspirin 81 Aspir- complet [place] MG Delayed Low ed [facility] Release (Aspir Health Oral Tablet in) Care Aspir-Low [81 Corporatio (Aspirin) mg]: 1 n [81 mg]: 1 Tablet Tablet Oral Oral DAILY DAILY PRINIVIL complet [place] te EQUIV (Free ed [facility] Text Health Medication) Care [20 MG Corporatio Tablet]: 20 n MG Oral Q10AM WATER complet [place] (ORAL) ed [facility] ([facility] Text Health Medication) Care [250 ML Corporatio Bottle]: n 250 ML Oral Q6H quetiapine Quetia complet [place] 50 MG Oral pine [facility] Tablet [50 mg Health Quetiapine Tablet Care [50 mg ]: 50 Corporatio Tablet]: 50 MG n MG Oral Oral Q12H Q12H Insurance Providers Payer name Policy type Policy ID Covered Covered alliance party's Policy P jovi / Coverage alliance party ID relationship to [employer] [facility] ormation type marinelli MEDICAID [id number] SP [id number] MEDICARE [id number] SP [id number] [facility] None Problems, Conditions, and Diagnoses Code [...] (St. 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 08/23/2018 [place] (current) use of (CURRENT) USE OF 07:50:00 PM [facility] aspirin ASPIRIN EDT [facility] G30.9 Alzheimer's ALZHEIMER'S Diagnosis 08/23/2018 [place] disease, DISEASE, 07:50:00 PM [facility] unspecified UNSPECIFIED EDT [facility] R33.9 Retention of RETENTION OF Diagnosis 08/23/2018 [facility] r urine, unspecified URINE, UNSPECIFIED 07:50:00 PM [facility] EDT [facility] E86.0 Dehydration DEHYDRATION Diagnosis 08/23/2018 [place] 07:50:00 PM [facility] EDT [facility] I10 Essential ESSENTIAL Diagnosis 08/23/2018 [place] (primary) (PRIMARY) 07:50:00 PM [facility] hypertension HYPERTENSION EDT [facility] E03.9 Hypothyroidism, HYPOTHYROIDISM, Diagnosis 08/23/2018 [facility] unspecified UNSPECIFIED 07:50:00 PM [facility] th EDT [facility] F02.81 Dementia in other DEMENTIA IN OTH Diagnosis 08/23/2018 [facility] diseases DISEASES CLASSD 07:50:00 PM formerly [facility] classified ELSWHR W EDT Care elsewhere with BEHAVIORAL DISTURB Co rporation behavioral disturbance N17.9 Acute kidney ACUTE KIDNEY Diagnosis 08/23/2018 [facility] r failure, FAILURE, 07:50:00 PM [facility] unspecified UNSPECIFIED EDT Care divorce360 F01.51 Vascular dementia VASCULAR DEMENTIA Diagnosis 08/19/2018 [place] with behavioral WITH BEHAVIORAL 03:05:00 PM [facility] disturbance DISTURBANCE EDT [facility] Results ID Date Data Source [id number] 06/25/2019 12:00:00 PM EDT [facility] Name Value Range Interpretation Description Data Sup porting Code Source(s) Document(s ) SARS CoV-2 [facility] Interpretation This lab was ordered by [facility] and reported by [employer]. ID Date Data Source [id number] 08/23/2018 06:09:58 PM EDT [facility] [id number] Corporation Name Value Range Interpretation Description Data Sup porting Code Source(s) Document(s ) Renal/ (PACSIMAGE <td> 08/22/2018 [place] Bladde 11:23</td><td> [facility] ) Final Renal/Bladder US Care Result </td><td><ZoomInfo Name: anabela SEYMOUR MRN: styleCode="Itali [id number] Sex: M cs">(PACSIMAGE : 1940 Location: Admitting )</paragraph><br Physician: />
Final TEJINDERPAL Result MO

Requesting Name: LION Physician: ALEJANDRINA HOLLAND
MRN: Exam: [id number] Sex: M BLADDER/RENAL
08/22/2018 11:39 : CLINICAL [...] hydronephrosis.

< br/>

<b r/> Resident Radiologist: Patel Mejía MD Resident Radiologistt
Attending Radiologist: Beatris Moore MD
Finalizing Radiologist: Beatris Moore MD
Transcribed Date: 08/22/2018 11:42
Finalized Date: 08/22/2018 13:03

</td> ID Date Data Source [id number] 08/23/2018 06:09:58 PM EDT [facility] [id number] Corporation Name Value Range Interpretation Description Data Sup porting Code Source(s) Document(s ) Magnesium 2.1 mg/dL 1.6-2.6 <td> [place] [Mass/volume] mg/dL 08/17/2018 [facility] in Serum or 23:39</td><td Health Care Plasma > Magnesium Corporation Level </td><td> 2.1
(1.6-2.6) mg/dL </td> Leukocytes 7.3 k/mm3 4.8-10. <td> [place] [#/volume] in 8 k/mm3 08/23/2018 [facility] Blood by 06:45</td><td Health Care Automated count > WBC Corporation </td><td> 7.3
(4.8-10.8) k/mm3 </td> Erythrocyte 31.8 pg 27.0-31 <td> [place] mean .5 pg 08/23/2018 [facility] corpuscular 06:45</td><td Health Care hemoglobin > MCH Corporation [Entitic mass] </td><td><par by Automated agraph count styleCode="Devon ld"> 31.8 H </paragraph>< br/> (27.0-31.5) pg </td> Erythrocyte 98.1 fL 80.0-94 <td> [place] mean .0 fL 08/23/2018 [facility] corpuscular 06:45</td><td Health Care volume [Entitic > MCV Corporation volume] by </td><td><par Automated count agraph styleCode="Devon ld"> 98.1 H </paragraph>< br/> (80.0-94.0) fL </td> Erythrocytes 3.74 m/mm3 4.70-6. <td> [place] [#/volume] in 10 08/23/2018 [facility] Blood m/mm3 06:45</td><td Health Care > RBC Corporation </td><td><par agraph styleCode="Devon ld"> 3.74 L </paragraph>< br/> (4.70-6.10) m/mm3 </td> Hematocrit 36.7 % 40.8-46 <td> [place] [Volume .9 % 08/23/2018 [place] [facility]] of 06:45</td><td Health Care Blood by > HCT Corporation Automated count </td><td><par agraph styleCode="Devon ld"> 36.7 L </paragraph>< br/> (40.8-46.9) % </td> Erythrocyte 32.4 % 32.0-36 <td> [place] mean .0 % 08/23/2018 [facility] corpuscular 06:45</td><td Health Care hemoglobin > MCHC Corporation concentration </td><td> [Mass/volume] in Blood from 32.4 Fetus by Automated count
(32.0-36.0) % </td> Hemoglobin 11.9 g/dL 14.0-18 <td> [place] [Mass/volume] .0 g/dL 08/23/2018 [facility] in Blood 06:45</td><td Health Care > HGB Corporation </td><td><par agraph styleCode="Devon ld"> 11.9 L </paragraph>< br/> (14.0-18.0) g/dL </td> Sodium 138 mEq/L 135-145 <td> [place] [Moles/volume] mEq/L 08/23/2018 [facility] in Serum or 06:44</td><td Health Care Plasma > divorce360 Sodium-Serum </td><td> 138
(135-145) mEq/L </td> Glucose 91 mg/dL 70-105 <td> [place] [Mass/volume] mg/dL 08/23/2018 [facility] in Blood 06:44</td><td Health Care > divorce360 Glucose-Serum </td><td> 91
(70-105) mg/dL </td> Platelet mean 10.9 fL 9.8-12. <td> [place] volume [Entitic 8 fL 08/23/2018 [place] volume] in 06:45</td><td Health Care Blood by > MPV divorce360 Automated count </td><td> 10.9
(9.8-12.8) fL </td> Erythrocyte 12.8 % 11.5-14 <td> [place] distribution .5 % 08/23/2018 [facility] width [Entitic 06:45</td><td Health Care volume] by > RDW Corporation Automated count </td><td> 12.8
(11.5-14.5) % </td> Platelets 183 k/mm3 160-410 <td> [place] [#/volume] in k/mm3 08/23/2018 [facility] Blood by 06:45</td><td Health Care Automated count > Platelet Corporation Count </td><td> 183
(160-410) k/mm3 </td> Chloride 107 mEq/L 98-107 <td> [place] [Moles/volume] mEq/L 08/23/2018 [facility] in Serum or 06:44</td><td Health Care Plasma > Chloride Corporation </td><td> 107
(98-107) mEq/L </td> Potassium 4.6 mEq/L 3.5-5.1 <td> [place] [Moles/volume] mEq/L 08/23/2018 [facility] in Serum or 06:44</td><td Health Care Plasma > Corporation Potassium-Ser um </td><td> 4.6
(3.5-5.1) mEq/L </td> Carbon dioxide, 24 mEq/L 22-30 <td> [place] total mEq/L 08/23/2018 [facility] [Moles/volume] 06:44</td><td Health Care in Serum or > CO2 Corporation Plasma </td><td> 24
(22-30) mEq/L </td> Anion gap in 7 mEq/L 7-13 <td> [place] Serum or Plasma mEq/L 08/23/2018 [facility] 06:44</td><td Health Care > Anion Gap Corporation </td><td> 7
(7-13) mEq/L </td> Urea nitrogen 45 mg/dL 6-22 <td> [place] [Mass/volume] mg/dL 08/23/2018 [facility] in Blood 06:44</td><td Health Care > BUN Corporation </td><td><par agraph styleCode="Devon ld"> 45 H </paragraph>< br/> (6-22) mg/dL </td> Creatinine 1.06 mg/dL 0.72-1. <td> [place] [Moles/volume] 25 08/23/2018 [facility] in Serum or mg/dL 06:44</td><td Health Care Plasma > Creatinine. Corporation </td><td> 1.06
(0.72-1.25) mg/dL </td> Hemolysis index No <td> [facility] Serum or Hemolysis 08/23/2018 [facility] Plasma 06:44</td><td Health Care > Hemolysis Corporation Index </td><td> No Hemolysis
</td> Calcium 9.4 mg/dL 8.6-10. <td> [place] [Mass/volume] 2 mg/dL 08/23/2018 [facility] in Blood 06:44</td><td Health Care > Calcium Corporation </td><td> 9.4
(8.6-10.2) mg/dL </td> Lipemic index No Lipemia <td> [facility] or 08/23/2018 [facility] Plasma 06:44</td><td Health Care > Lipemia Corporation Index </td><td> No Lipemia
</td> Icteric index Not Icteric <td> [facility] or 08/23/2018 [facility] Plasma 06:44</td><td Health Care > Icteric Corporation Index </td><td> Not Icteric
</td> Glucose Negative <td> [place] [Presence] in 08/22/2018 [facility] Urine by Test 12:10</td><td Health Care strip > Glucose_ Corporation </td><td> Negative
(NEGATIVE) </td> Protein Negative <td> [place] [Presence] in 08/22/2018 [facility] Urine by 12:10</td><td Health Care Automated test > Protein Corporation strip Qualitative </td><td> Negative
(NEGATIVE) </td> Phosphate 3.2 mg/dL 2.3-4.7 <td> [place] [Mass/volume] mg/dL 08/23/2018 [facility] in Serum or 06:44</td><td Health Care Plasma > Inorganic Corporation Phosphorus </td><td> 3.2
(2.3-4.7) mg/dL </td> Specific 1.023 {} 1.000-1 <td> [place] gravity of .035 08/22/2018 [facility] Urine by Test 12:10</td><td Health Care strip > Specific Corporation [place] </td><td> 1.023
(1.000-1.035) </td> Appearance of Clear <td> [place] Urine 08/22/2018 [facility] 12:10</td><td Health Care > Appearance Corporation </td><td> Clear
(CLEAR) </td> Leukocyte Negative <td> [place] esterase 08/22/2018 [facility] [Presence] in 12:10</td><td Health Care Urine by Test > Leukocytes Corporation strip Esterase </td><td> Negative
(NEGATIVE) </td> Urobilinogen 0.2 mg/dL 0.0-2.0 <td> [place] [Presence] in mg/dL 08/22/2018 [facility] Urine by 12:10</td><td Health Care Automated test > Corporation strip Urobilinogen </td><td> 0.2
(0.0-2.0) mg/dL </td> Leukocytes 3 /HPF 0-5 <td> [place] [Presence] in /HPF 08/22/2018 [facility] Urine by 12:10</td><td Health Care Automated > WBC Corporation </td><td> 3
(0-5) /HPF </td> Epithelial RARE <td> [place] cells [#/area] FEW 08/22/2018 [facility] in Urine 12:10</td><td Health Care sediment by > Epithelial Corporation Automated count Cells </td><td> RARE
/LPF
FEW

/LPF </td> Bacteria RARE <td> [place] [#/area] in 08/22/2018 [facility] Urine sediment 12:10</td><td Health Care by Microscopy > Bacteria Corporation high power </td><td> field RARE
(NONE SEEN) /HPF </td> Nitrite Negative <td> [place] [Presence] in 08/22/2018 [facility] Urine by Test 12:10</td><td Health Care strip > Nitrites Corporation </td><td> Negative
(NEGATIVE) </td> Erythrocytes 1 /HPF 0-2 <td> [place] [#/area] in /HPF 08/22/2018 [facility] Urine sediment 12:10</td><td Health Care by Automated > RBC Corporation count </td><td> 1
(0-2) /HPF </td> Magnesium 2.2 mg/dL 1.6-2.6 <td> [place] [Mass/volume] mg/dL 08/23/2018 [facility] in Serum or 06:44</td><td Health Care Plasma > Magnesium Corporation Level </td><td> 2.2
(1.6-2.6) mg/dL </td> Mucous RARE <td> [place] < FEW 08/22/2018 [facility] 12:10</td><td Health Care > Mucous Corporation </td><td> RARE
/LPF
< FEW

/LPF </td> Hyaline casts 1.00 /LPF NONE <td> [place] [#/area] in SEEN 08/22/2018 [facility] Urine sediment /LPF 12:10</td><td Health Care by Microscopy > Hyaline Corporation high power Cast field </td><td> 1.00
(NONE SEEN) /LPF </td> ID Date Data Source [id number] 08/18/2018 09:45:04 AM EDT [facility] [id number] Corporation Name Value Range Interpretation Description Data Source(s ) Supporting Code Document(s ) ABO-Rh Type A NEG <td> [place] 08/17/2018 [facility] 23:50</td><td> Care ABO-Rh Type Corporation </td><td> A NEG
</td> Specimen 08/21/19 <td> [place] expiration 19 23:59 08/17/2018 [facility] date of Blood 23:50</td><td> Care Specimen Corporation Expiration Date </td><td> 08/20/2018 23:59
</td> Antibody NEG <td> [place] Screen 08/17/2018 [facility] 23:50</td><td> Care Antibody Corporation Screen </td><td> NEG
</td> Procedure Social History Code Duration Value Status Description Data Source(s ) Smoking Never smoker completed Never smoker [facility] Vital Signs ID Date Data Source UNK [...] 16.0000 {} Normal (applies to 16.0000 {} [place] rate Set non-numeric results) Coun ty [facility] Corporati on Heart rate 74.0000 {} Normal (applies to 74.0000 {} [place] non-numeric results) Coun ty [facility] Care Corporati on Body temperature 97.2000 {} Normal (applies to 97.2000 {} [place] non-numeric results) Coun ty Health Care Corporati on Diastolic blood 66 {} Normal (applies to 66 {} [place] pressure non-numeric results) Coun ty Health Care Corporati on Systolic blood 112 {} Normal (applies to 112 {} [place] pressure non-numeric results) Coun ty Health Care Corporati on First Respiration 18.0000 {} Normal (applies to 18.0000 {} [place] rate Set non-numeric results) Coun ty Health Care Corporati on Heart rate 73.0000 {} Normal (applies to 73.0000 {} [place] non-numeric results) Coun ty [facility] Corporati on Body temperature 98.1000 {} Normal (applies to 98.1000 {} [place] non-numeric results) Coun ty Health Care Corporati on wt - obtain Normal (applies to {} [facility] non-numeric results) Coun ty Health Care Corporati on weight - kg 60.0000 {} Normal (applies to 60.0000 {} [place] non-numeric results) Coun ty Health Care Corporati on
--- NOTE | 2019-11-18 22:02 | HP ---
Admitting History and Physical - Primary Care Physician PCP: Lida Centeno (from [place]) - Admission Chief Complaint: Coffee Ground Emesis History of Present Illness: This is a 79 y/o male from [place] with a PMHx of Dementia, Failure to Thrive, HTN, PVD, Hypothyroid, BPH, MDD. Who presents to the ED for evaluation of coffee ground emesis x 4 days, KUB was done outpatient- partial SBO. Patient has Dementia and is not able to provide HPI. ED course was notable for: (1) CTAP- Distal SBO with significant dilation of the small bowel loops (2) Chest Xray- faint opacities in the left mid-lung suggestive of pneumonic infiltrates. 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 Cardiovascular: Yes: HTN, Other (PVD) Renal/: Yes: BPH Psych: Yes: Depression Endocrine: Yes: Hypothyroidism - Past Surgical History Past Surgical History: Yes: None (unknownunknown) - Advance Directives Advance Directives: Yes: DNR (DNI), MOLST - Smoking History Smoking history: Smoker current status UNK Have you smoked in the past 12 months: No - Alcohol/Substance Use Hx Alcohol Use: No History of Substance Use: reports: None - Social History Usual Living Arrangement: Yes: [facility] ADL: Support Services History of Recent Travel: No Home Medications - Allergies Allergies/Adverse Reactions: Allergies Allergy/AdvReac Type Severity Reaction Status Date / Time No Known Allergies Allergy Verified 11/18/19 16:12 - Home Medications Home Medications: Ambulatory Orders Ascorbic Acid [Vitamin C -] 500 mg PO DAILY 11/18/19 Cholecalciferol (Vitamin D3) [Vitamin D3] 25 mcg PO DAILY 11/18/19 Levothyroxine [Synthroid -] 25 mcg PO DAILY 11/18/19 Family Medical History Family History: Unable to Obtain Review of Systems Unable to obtain ROS, reason: Dementia Physical Examination Vital Signs: Vital Signs Temperature 99.2 F 11/18/19 16:14 Pulse Rate 126 H 11/18/19 16:14 Respiratory Rate 20 11/18/19 16:14 Blood Pressure 131/93 11/18/19 16:14 O2 Sat by Pulse Oximetry (%) 95 11/18/19 16:14 Constitutional: Yes: Thin, Other (unreponsive to verbal commands grimaces to painful stimulus) Eyes: Yes: Conjunctiva Clear, PERRL HENT: Yes: Atraumatic, Normocephalic, Other (dry mucous membranes) Neck: Yes: Supple, Trachea Midline Cardiovascular: Yes: Tachycardia, S1, S2 Respiratory: Yes: Diminished, Rhonchi Gastrointestinal: Yes: Soft, Hypoactive Bowel Sounds Renal/: Yes: Incontinence Edema: No Peripheral Pulses WNL: Yes Neurological: Yes: Unresponsive Labs: CBC, BMP 11/18/19 17:20 11/18/19 17:20 Imaging - Results Chest X-ray: Report Reviewed, Image Reviewed Cat Scan: Image Reviewed EKG: Image Reviewed Problem List - Problems (1) SBO (small bowel obstruction) Assessment/Plan: SNF records- coffee ground emesis x 4 days CTAP- Distal SBO No significant leukocytosis or neutrophilia Lactic Acid 3.2 Surgical Consult- Dr Palmer aware NGT placement attempts unsuccessful by RN and ED resident will defer to- surgical team Continue IVF Monitor CBC, CMP Monitor vitals Code(s): K56.609 - UNSP INTESTNL OBST, UNSP TO PARTIAL VERSUS COMPLETE OBST (2) Pneumonia Assessment/Plan: CURB65 3, severe risk Chest Xray- opacities in the left mid-lung suggestive of pneumonic infiltrates Blood Cultures-pending Urine Legionellla Vancomycin, Zosyn given in ED, will continue renal dosing Appreciate ID consult Monitor CBC, CMP Monitor vitals O2 Code(s): J18.9 - PNEUMONIA, UNSPECIFIED ORGANISM (3) GI bleed Assessment/Plan: H/H stable Appreciate GI consult Continue IVF PPI NPO Stool Occult-pending Maintain MAP> 65 Code(s): K92.2 - GASTROINTESTINAL HEMORRHAGE, UNSPECIFIED (4) HTN (hypertension) Assessment/Plan: stable Hold home meds 2/2 SBO Monitor BP Monitor CMP Code(s): I10 - ESSENTIAL (PRIMARY) HYPERTENSION (5) Hypothyroid Assessment/Plan: stable TSH in am Continue Levothyroxine IV Code(s): E03.9 - HYPOTHYROIDISM, UNSPECIFIED (6) Dementia Assessment/Plan: stable Fall Precautions Ativan prn Hold home med 2/2 SBO Code(s): F03.90 - UNSPECIFIED DEMENTIA WITHOUT BEHAVIORAL DISTURBANCE (7) BPH (benign prostatic hyperplasia) Assessment/Plan: stable Hold home med 2/2 SBO Code(s): N40.0 - BENIGN PROSTATIC HYPERPLASIA WITHOUT LOWER URINRY TRACT SYMP (8) PVD (peripheral vascular disease) Assessment/Plan: stable Continue to monitor Hold home med 2/2 SBO Code(s): I73.9 - PERIPHERAL VASCULAR DISEASE, UNSPECIFIED (9) Encounter for screening laboratory testing for COVID-19 virus Assessment/Plan: 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 Admitted for SBO, Pneumonia for further evaluation of their emergent condition. Plan See Problem List FEN D50.45%NS@42ml/hr replete lytes prn NPO DVT ppx OOB SCDs Heparin SQ Code Status: DNR/DNI, MOLST Dispo: Requires Inpatient Care Visit type - Medication Review Med list reviewed for High Risk Meds patients 65 and older: Yes - Emergency Visit Emergency Visit: Yes ED Registration Date: 11/18/19 Care time: The patient presented to the Emergency Department on the above date and was hospitalized for further evaluation of their emergent condition. - New Patient This patient is new to me today: Yes Date on this admission: 11/18/19 - Critical Care Critical Care patient: No
[2019-11-18] MEDS ORDERED: ACETAMINOPHEN INJECTION 100 ML IVPB ONE (22:43)
[2019-11-18] MEDS ORDERED: LIDOCAINE HCL 2% JELLY 10 ML CARTRIDGE ONE (22:43)
[2019-11-18 23:40] LABS: INR 1.19 (0.83-1.09); PROTHROMBIN TIME (PATIENT) 14.1 SEC (9.7-13.0)
[2019-11-19] MEDS ORDERED: SODIUM CHLORIDE 500 ML IV STA (00:29)
[2019-11-19] MEDS ORDERED: PANTOPRAZOLE SODIUM 40 MG VIAL IVPUSH ONE (00:43)
[2019-11-19] MEDS: DEXTROSE 5%-0.45% SALINE 1,000 ML IV SCH ×2 (02:14→22:01)
[2019-11-19] MEDS ORDERED: ACETAMINOPHEN 1000 MG/100 ML VIAL (NON FORMULARY) IVPB PRN (04:02)
[2019-11-19] MEDS: PIPERACILLIN/TAZOB 2.25 GM 2.25 GM in DEXTROSE 5%-WATER - 50 ML IVPB SCH ×4 (05:40→21:01)
[2019-11-19 06:38] LABS: BASO % 0.1 % (0-2.0); EOS % 0.1 % (0-4.5); HEMATOCRIT 42.1 % (35.4-49); HEMOGLOBIN 13.8 GM/dL (11.7-16.9); LYMPH % 14.1 % (8-40); MCH 29.9 pg (25.7-33.7); MCHC 32.7 g/dl (32.0-35.9); MEAN CELL VOLUME 91.3 fl (80-96); MEAN PLT VOLUME 8.7 fl (7.5-11.1); MONO % 6.4 % (3.8-10.2); NEUT % 79.3 % (42.8-82.8); PLATELET COUNT 179 K/MM3 (134-434); RBC 4.61 M/mm3 (4.00-5.60); RDW 17.2 % (11.9-15.9); WHITE BLOOD COUNT 11.4 K/mm3 (4.0-10.0)
[2019-11-19 07:13] LABS: ALBUMIN 3.2 g/dl (3.4-5.0); BLOOD UREA NITROGEN 43.9 mg/dL (7-18); CALCIUM 9.3 mg/dL (8.5-10.1); CREATININE 1.1 mg/dL (0.55-1.3); POTASSIUM 4.2 mmol/L (3.5-5.1)
[2019-11-19 07:24] LABS: BILIRUBIN,TOTAL 1.1 mg/dL (0.2-1); TOT PROT 6.8 g/dl (6.4-8.2)
--- NOTE | 2019-11-19 09:06 | EKG ---
Test Reason : Blood Pressure : / mmHG Vent. Rate : 117 BPM Atrial Rate : 117 BPM P-R Int : 174 ms QRS Dur : 086 ms QT Int : 320 ms P-R-T Axes : 039 002 064 degrees QTc Int : 446 ms SINUS TACHYCARDIA INFERIOR INFARCT , AGE UNDETERMINED ABNORMAL ECG NO PREVIOUS ECGS AVAILABLE Confirmed by MD PHI, MILLI ([id number]) on 11/19/2019 9:06:03 AM Referred By: Confirmed By:MILLI YIP MD
[2019-11-19] MEDS ORDERED: PIPERACILLIN/TAZOBACTAM 2.25 GM VIAL IVPB ONE ×3 (10:46→21:50)
[2019-11-19] MEDS ORDERED: DEXTROSE 5%-WATER - 50 ML IVPB ONE ×3 (10:46→21:50)
[2019-11-19 10:50] LABS: ANISOCYTOSIS 1+; MACROCYTOSIS 0; PLATELET ESTIMATE NORMAL
--- NOTE | 2019-11-19 13:46 | CONS ---
DATE OF CONSULTATION: DATE OF DICTATION: 11/19/2019 REASON FOR CONSULTATION: Small-bowel obstruction. This is an emergency room consultation at the request of the emergency room physician. BRIEF HISTORY: This is a 79-year-old male with a virgin abdomen and end-stage dementia, with multiple other medical problems. He presented to the [facility] with coffee-grounds emesis. He had a CAT scan of his abdomen and pelvis done without oral contrast which showed a likely small-bowel obstruction. No nasogastric tube was placed overnight until this morning where a large amount of bilious output. The patient's daughter stated that she would be interested in surgery if necessary, and the patient was sent to the intensive care unit. Request was made for surgical evaluation. The patient was seen and examined this morning; however, due to persistent computer problems at [facility], I was unable to input my findings and exam into the computer system, and therefore I am using the telephone dictation system. PAST MEDICAL HISTORY: Gleaned from the chart and includes dementia, hypertension, benign prostatic hypertrophy, depression, hypothyroidism, failure to thrive, peripheral vascular disease. PAST SURGICAL HISTORY: Nil. SOCIAL HISTORY: Negative for alcohol. ALLERGIES: He has no known drug allergies. MEDICATIONS: Home medications include Synthroid. REVIEW OF SYSTEMS: Unobtainable. The patient is not oriented, and he is currently nonverbal. PHYSICAL EXAMINATION: General: This is a cachectic 79-year-old male in no distress. Vital Signs: He is currently febrile with a temperature of 100.2. HEENT: His head has mild temporal wasting. Neck: Supple. Chest: Clear. Abdomen: Soft. It is moderately distended. There are no surgical scars. Extremities: Have trace edema. LABORATORY: His white blood cell count is 11.4. There is a shift. His chemistries are unremarkable with a normal lactic acid but initial lactic acidosis. IMAGING: He has a chest x-ray suggestive of pneumonia, and he has a CAT scan of his abdomen and pelvis suggestive of a distal small-bowel obstruction with 4-cm dilated loops proximal to that. ASSESSMENT: This is a 79-year-old male with end-stage dementia, failure to thrive, do not resuscitate, who presents with possible aspiration pneumonia and CAT scan evidence of a small-bowel obstruction. The CAT scan was done without oral contrast. Now that he has a nasogastric tube, recommend repeat imaging with oral contrast through the nasogastric tube to better evaluate the terminal ileum. The patient has a virgin abdomen, and therefore I am suspicious that this could be a malignancy or possibly inflammatory bowel disease. I am also concerned that in the setting of failure to thrive and end-stage dementia, if laparotomy in this setting is appropriate, though the daughter initially states that she would want surgery. Would recommend a palliative care evaluation to see if further discussion with the family can be had and to make sure that this would be appropriate. If the family wishes to have surgery, if CAT scan confirms, if patient is tested negative for COVID virus which is still pending, can entertain exploratory surgery; however, this may be inappropriate treatment in this setting. DO TONY CAMILO/[id number]
--- NOTE | 2019-11-19 14:18 | PN ---
Progress Note (short form) - Note Progress Note: events noted pt has dementia, not giving history not in distress NGT in place black secretion+ Vital Signs - 24 hr 11/19/19 11/19/19 11/19/19 01:00 01:30 06:00 Temperature 100.8 F H 100.2 F H 97.5 F L Pulse Rate 90 100 H 86 Respiratory 16 16 15 Rate Blood Pressure 106/78 106/78 122/83 O2 Sat by Pulse 95 95 95 Oximetry (%) 11/19/19 11/19/19 11/19/19 09:00 10:00 14:00 Temperature 98.9 F 99.0 F Pulse Rate 88 88 Respiratory 15 15 Rate Blood Pressure 130/85 117/92 O2 Sat by Pulse 95 Oximetry (%) 11/19/19 11/19/19 17:24 18:00 Temperature 99.2 F Pulse Rate 110 H 111 H Respiratory 16 20 Rate Blood Pressure 119/85 119/85 O2 Sat by Pulse 92 L 96 Oximetry (%) Current Medications Generic Name Dose Route Start Last Admin Trade Name Freq PRN Reason Stop Dose Admin Acetaminophen 650 mg 11/19/19 04:02 Ofirmev Injection - IVPB 11/20/19 04:03 Q6H PRN FEVER Dextrose/Sodium Chloride 1,000 mls @ 60 mls/hr 11/19/19 00:45 11/19/19 02:14 D5-1/2ns - IV 60 mls/hr ASDIR MEGHANN Administration Piperacillin Sod/Tazobactam 50 mls @ 100 mls/hr 11/19/19 21:00 Sod 2.25 gm/ Dextrose IVPB Q6H-IV MEGHANN Protocol Pantoprazole Sodium 40 mg 11/20/19 10:00 Protonix Iv IVPUSH DAILY MEGHANN Laboratory Results - last 24 hr 11/18/19 11/18/19 11/18/19 17:20 18:00 23:12 WBC RBC Hgb Hct MCV MCH MCHC RDW Plt Count MPV Absolute Neuts (auto) Neutrophils % Neutrophils % (Manual) 54.6 Band Neutrophils % 18.2 Lymphocytes % Lymphocytes % (Manual) 22.2 Monocytes % Monocytes % (Manual) 4 Eosinophils % Eosinophils % (Manual) 0.0 Basophils % Basophils % (Manual) 0.0 Myelocytes % (Man) 1 Promyelocytes % (Man) 0 Blast Cells % (Manual) 0 Nucleated RBC % 2 H Metamyelocytes 0 Hypochromia 0 Toxic Granulation 0 Dohle Bodies 0 Platelet Estimate Normal Polychromasia 0 Poikilocytosis 0 Basophilic Stippling 0 Anisocytosis 0 Microcytosis 0 Macrocytosis 0 Spherocytes 0 Sickle Cells 0 Target Cells 0 Tear Drop Cells 0 Ovalocytes 0 Stomatocytes 0 Helmet Cells 0 Gu[place]ro-[place] Bodies 0 [place] Rings 0 [place] Cells 0 Acanthocytes (Spur) 0 Rouleaux 0 Fragmented RBCs 0 Schistocytes 0 PT with INR 14.10 H INR 1.19 H Sodium Potassium Chloride Carbon Dioxide Anion Gap BUN Creatinine Est GFR (CKD-EPI)AfAm Est GFR (CKD-EPI)NonAf POC Glucometer Random Glucose Lactic Acid Calcium Total Bilirubin AST ALT Alkaline Phosphatase Total Protein Albumin TSH COVID-19 (SOPHIA) Not detected 11/18/19 11/19/19 11/19/19 23:12 05:30 05:30 WBC 11.4 H RBC 4.61 Hgb 13.8 Hct 42.1 MCV 91.3 MCH 29.9 MCHC 32.7 RDW 17.2 H Plt Count 179 MPV 8.7 Absolute Neuts (auto) 9.0 H Neutrophils % 79.3 Neutrophils % (Manual) 31.8 L D Band Neutrophils % 42.0 Lymphocytes % 14.1 Lymphocytes % (Manual) 14.8 D Monocytes % 6.4 Monocytes % (Manual) 7 Eosinophils % 0.1 D Eosinophils % (Manual) 0.0 Basophils % 0.1 Basophils % (Manual) 0.0 Myelocytes % (Man) 0 D Promyelocytes % (Man) 0 Blast Cells % (Manual) 0 Nucleated RBC % 0 Metamyelocytes 2 D Hypochromia 0 Toxic Granulation Dohle Bodies Platelet Estimate Normal Polychromasia 1+ Poikilocytosis 0 Basophilic Stippling Anisocytosis 1+ Microcytosis Macrocytosis 0 Spherocytes Sickle Cells Target Cells Tear Drop Cells Ovalocytes Stomatocytes Helmet Cells Guerrero-[place]ce Bodies [place] Rings [place] Cells 2+ Acanthocytes (Spur) Rouleaux Fragmented RBCs Schistocytes PT with INR INR Sodium 141 Potassium 4.2 Chloride 107 Carbon Dioxide 24 Anion Gap 10 BUN 43.9 H Creatinine 1.1 Est GFR (CKD-EPI)AfAm 74.65 Est GFR (CKD-EPI)NonAf 64.41 POC Glucometer Random Glucose 143 H Lactic Acid 3.2 H* Calcium 9.3 Total Bilirubin 1.1 H AST 16 ALT 15 Alkaline Phosphatase 77 Total Protein 6.8 Albumin 3.2 L TSH 14.80 H COVID-19 (SOPHIA) 11/19/19 11/19/19 11/19/19 06:57 09:05 18:17 WBC RBC Hgb Hct MCV MCH MCHC RDW Plt Count MPV Absolute Neuts (auto) Neutrophils % Neutrophils % (Manual) Band Neutrophils % Lymphocytes % Lymphocytes % (Manual) Monocytes % Monocytes % (Manual) Eosinophils % Eosinophils % (Manual) Basophils % Basophils % (Manual) Myelocytes % (Man) Promyelocytes % (Man) Blast Cells % (Manual) Nucleated RBC % Metamyelocytes Hypochromia Toxic Granulation Dohle Bodies Platelet Estimate Polychromasia Poikilocytosis Basophilic Stippling Anisocytosis Microcytosis Macrocytosis Spherocytes Sickle Cells Target Cells Tear Drop Cells Ovalocytes Stomatocytes Helmet Cells Guerrero-Mila Doce Bodies [place] Rings Sherri Cells Acanthocytes (Spur) Rouleaux Fragmented RBCs Schistocytes PT with INR INR Sodium Potassium Chloride Carbon Dioxide Anion Gap BUN Creatinine Est GFR (CKD-EPI)AfAm Est GFR (CKD-EPI)NonAf POC Glucometer 161 119 Random Glucose Lactic Acid 1.7 Calcium Total Bilirubin AST ALT Alkaline Phosphatase Total Protein Albumin TSH COVID-19 (SOPHIA) S1 S2 RRR Lungs decreased cachetic Abd- soft ,tender+,no BS No edema A/P Sepsis severe malnutrition high grade partial SBO dementia aspiration pneumonia --- iv fluids -- iv antibiotics -- surgical eval -- supportive care -- pt is DNR/DNI Problem List - Problems (1) Dementia Code(s): F03.90 - UNSPECIFIED DEMENTIA WITHOUT BEHAVIORAL DISTURBANCE (2) GI bleed Code(s): K92.2 - GASTROINTESTINAL HEMORRHAGE, UNSPECIFIED (3) HTN (hypertension) Code(s): I10 - ESSENTIAL (PRIMARY) HYPERTENSION (4) Pneumonia Code(s): J18.9 - PNEUMONIA, UNSPECIFIED ORGANISM Qualifiers: Pneumonia type: aspiration pneumonia Laterality: unspecified laterality Lung location: unspecified part of lung Qualified Code(s): J18.9 - Pneumonia, unspecified organism (5) SBO (small bowel obstruction) Code(s): K56.609 - UNSP INTESTNL OBST, UNSP TO PARTIAL VERSUS COMPLETE OBST
--- NOTE | 2019-11-19 16:05 | CON.ID ---
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 Cardio/Vascular: Yes: HTN, Other (PVD) Renal/: Yes: BPH Psych: Yes: Depression Endocrine: Yes: Hypothyroidism - Past Surgical History Past Surgical History: Yes: None (unknownunknown) - Alcohol/Substance Use Hx Alcohol Use: No History of Substance Use: reports: None - Smoking History Smoking history: Smoker current status UNK Have you smoked in the past 12 months: No - Social History Usual Living Arrangement: Assisted ADL: Support Services History of Recent Travel: No Home Medications - Allergies Allergies/Adverse Reactions: Allergies Allergy/AdvReac Type Severity Reaction Status Date / Time No Known Allergies Allergy Verified 11/18/19 16:12 - Home Medications Home Medications: Ambulatory Orders Ascorbic Acid [Vitamin C -] 500 mg PO DAILY 11/18/19 Cholecalciferol (Vitamin D3) [Vitamin D3] 25 mcg PO DAILY 11/18/19 Levothyroxine [Synthroid -] 25 mcg PO DAILY 11/18/19 Family Medical History Family History: Unable to Obtain Review of Systems Unable to obtain ROS, reason: unable to obtain Physical Exam Vital Signs: Vital Signs Temperature 97.5 F L 11/19/19 06:00 Pulse Rate 88 11/19/19 14:00 Respiratory Rate 15 11/19/19 14:00 Blood Pressure 117/92 11/19/19 14:00 O2 Sat by Pulse Oximetry (%) 95 11/19/19 09:00 Constitutional: Yes: Mild Distress, Thin Eyes: Yes: Conjunctiva Clear HENT: Yes: Atraumatic, Normocephalic Neck: Yes: Trachea Midline Cardiovascular: Yes: Regular Rate and Rhythm Respiratory: Yes: Regular, CTA Bilaterally Gastrointestinal: Yes: Distention, Hypoactive Bowel Sounds, Other (tympanitic, diffuse discomfort to palpation) ...Rectal Exam: Yes: Deferred Musculoskeletal: Yes: Other (increased tone throughout entire body) Extremities: Yes: WNL Neurological: Yes: Other (nonverbal) Labs: CBC, BMP 11/19/19 05:30 11/19/19 05:30 Imaging - Results Chest X-ray: Report Reviewed, Image Reviewed Cat Scan: Report Reviewed Problem List - Problems (1) SBO (small bowel obstruction) Code(s): K56.609 - UNSP INTESTNL OBST, UNSP TO PARTIAL VERSUS COMPLETE OBST (2) Pneumonia Code(s): J18.9 - PNEUMONIA, UNSPECIFIED ORGANISM Qualifiers: Pneumonia type: aspiration pneumonia Laterality: unspecified laterality Lung location: unspecified part of lung Qualified Code(s): J18.9 - Pneumonia, unspecified organism (3) Dementia Code(s): F03.90 - UNSPECIFIED DEMENTIA WITHOUT BEHAVIORAL DISTURBANCE Assessment/Plan suspected aspiration pneumonia due to vomiting from SBO continue zosyn check urinary antigens for completeness, f/u blood cultures management of SBO per surgery
[2019-11-20] MEDS ORDERED: METOPROLOL TARTRATE 5 MG/5 ML VIAL IVPUSH ONE (00:30)
--- NOTE | 2019-11-20 00:35 | HOSP ---
Subjective - Review of Symptoms Events since last encounter: Hospitalist Encounter Notified by the RN that the patient HR is ST 150's, was asked to assess Arrived to bedside, patient is non-verbal at baseline. Patient examined see EMR Plan: EKG stat Cardiology consult Physical Examination Vital Signs: Vital Signs Temperature 99.2 F 11/19/19 18:00 Pulse Rate 108 H 11/19/19 20:00 Respiratory Rate 20 11/19/19 20:00 Blood Pressure 140/98 11/19/19 20:00 O2 Sat by Pulse Oximetry (%) 96 11/19/19 20:00 Constitutional: Yes: Thin, Other (unresponsive- baseline) Eyes: Yes: Conjunctiva Clear, PERRL HENT: Yes: Atraumatic, Normocephalic Neck: Yes: Supple, Trachea Midline Cardiovascular: Yes: Tachycardia, Pulse Irregular, S1, S2 Respiratory: Yes: Diminished, Rhonchi Gastrointestinal: Yes: Soft, Hypoactive Bowel Sounds Renal/: Yes: Incontinence Edema: No Peripheral Pulses WNL: Yes Neurological: Yes: Unresponsive Labs: CBC, BMP 11/19/19 05:30 11/19/19 05:30 Hospitalist Encounter Assessment: This is a 79 y/o male from [place] with a PMHx of Dementia, Failure to Thrive, HTN, PVD, Hypothyroid, BPH, MDD. Admitted for SBO, Pneumonia. Patient is a DNR/DNI, MOLST Outcome: EKG reviewed Afib with RVR Rate slowed post medication 100s-120 Notified by RN, that the patient's HR sustained to 130's-150's Cardiology notified, orders given by Cardiology to RN- May IVP, May Drip Will continue to monitor, PMD to resume care in am Critical Care Total Critical Care Time (in minutes): 45 Critical Care Statement: The care of this patient involved high complexity de cision making to prevent further life threatening deterioration of the patient's condition and/or to evaluate & treat vital organ system(s) failure or risk of failure.
[2019-11-20] MEDS ORDERED: METOPROLOL TARTRATE 5 MG/5 ML VIAL IVPUSH PRN (00:37)
[2019-11-20] MEDS: DEXTROSE 5%-0.45% SALINE 1,000 ML IV SCH (01:27)
[2019-11-20] MEDS ORDERED: dilTIAZem HCL 125 MG/25 ML - 25 ML VIAL ONE (01:56)
[2019-11-20] MEDS ORDERED: dilTIAZem HCL 25 MG/5 ML - 5 ML VIAL ONE (01:56)
[2019-11-20] MEDS ORDERED: dilTIAZem HCL 25 MG/5 ML - 5 ML VIAL IVPUSH ONE (02:00)
[2019-11-20] MEDS ORDERED: SODIUM CHLORIDE 250 ML IV ONE (02:00)
[2019-11-20] MEDS: PIPERACILLIN/TAZOB 2.25 GM 2.25 GM in DEXTROSE 5%-WATER - 50 ML IVPB SCH ×4 (02:31→21:25)
[2019-11-20] MEDS: DILTIAZEM INJECTION 125 MG in DEXTROSE 5%-WATER - 100 ML IVPB SCH (05:51)
[2019-11-20 07:27] LABS: EOS % 0.3 % (0-4.5); HEMOGLOBIN 12.1 GM/dL (11.7-16.9); LYMPH % 15.2 % (8-40); MCHC 32.7 g/dl (32.0-35.9); MEAN CELL VOLUME 91.7 fl (80-96); MEAN PLT VOLUME 8.4 fl (7.5-11.1); MONO % 5.9 % (3.8-10.2); NEUT % 78.6 % (42.8-82.8); PLATELET COUNT 200 K/MM3 (134-434); RBC 4.03 M/mm3 (4.00-5.60); RDW 17.1 % (11.9-15.9); WHITE BLOOD COUNT 7.5 K/mm3 (4.0-10.0)
[2019-11-20 07:57] LABS: ALBUMIN 2.6 g/dl (3.4-5.0); BILIRUBIN,TOTAL 1.4 mg/dL (0.2-1); CALCIUM 8.2 mg/dL (8.5-10.1); CREATININE 1.4 mg/dL (0.55-1.3); MAGNESIUM 2.2 mg/dL (1.8-2.4); POTASSIUM 3.4 mmol/L (3.5-5.1); TOT PROT 5.8 g/dl (6.4-8.2)
[2019-11-20] MEDS ORDERED: PIPERACILLIN/TAZOBACTAM 2.25 GM VIAL IVPB ONE ×3 (08:43→21:15)
[2019-11-20] MEDS ORDERED: DEXTROSE 5%-WATER - 50 ML IVPB ONE ×3 (08:43→21:15)
[2019-11-20 09:15] LABS: ANISOCYTOSIS 1+; MACROCYTOSIS 0; PLATELET ESTIMATE NORMAL
[2019-11-20] MEDS: PANTOPRAZOLE SODIUM 40 MG VIAL IVPUSH SCH (09:18)
[2019-11-20 09:22] LABS: BLOOD UREA NITROGEN 39.2 mg/dL (7-18)
--- NOTE | 2019-11-20 09:47 | EKG ---
Test Reason : Blood Pressure : / mmHG Vent. Rate : 113 BPM Atrial Rate : 077 BPM P-R Int : 000 ms QRS Dur : 078 ms QT Int : 298 ms P-R-T Axes : 000 -04 -30 degrees QTc Int : 408 ms POOR DATA QUALITY, INTERPRETATION MAY BE ADVERSELY AFFECTED ATRIAL FIBRILLATION WITH RAPID VENTRICULAR RESPONSE ANTERIOR INFARCT , AGE UNDETERMINED ABNORMAL ECG WHEN COMPARED WITH ECG OF 18-NOV-2019 16:54, ATRIAL FIBRILLATION HAS REPLACED SINUS RHYTHM ANTERIOR INFARCT IS NOW PRESENT CRITERIA FOR INFERIOR INFARCT ARE NO LONGER PRESENT ST NOW DEPRESSED IN INFERIOR LEADS Confirmed by WILVER AMATO MD ([id number]) on 11/20/2019 9:47:28 AM Referred By: Confirmed By:WILVER AMATO MD
[2019-11-20] MEDS: KCL 10 MEQ IVPB 10 MEQ/100 ML INFUS.BAG IVPB SCH ×2 (10:00→12:01)
--- NOTE | 2019-11-20 10:00 | PN ---
Progress Note (short form) - Note Progress Note: surgery repeat ct still shows high grade sbo. cardiac events noted. awaiting palliative care eval.
[2019-11-20] MEDS: ONDANSETRON 4 MG/2 ML VIAL IVPUSH PRN ×2 (11:00→21:25)
--- NOTE | 2019-11-20 11:47 | CON.CARD ---
Cardiology Consult (text) - Consultation Consultation Note: cc: sent from me for coffee ground emesis hpi: hx from charts, pt with severe dementia. 79 m hx dementia, htn, hypothyroid, sent from me for coffee ground emesis. Found to have pna, sbo, and afib with rvr as well, currently in ICU. pmh: per hpi psh: unknown social: unknown ros: n/a 2/2 dementia fam: unknown meds: Home Medications Medication Instructions Recorded Ascorbic Acid [Vitamin C -] 500 mg PO DAILY 11/18/19 Cholecalciferol (Vitamin D3) 25 mcg PO DAILY 11/18/19 [Vitamin D3] Levothyroxine [Synthroid -] 25 mcg PO DAILY 11/18/19 pe: Vital Signs Temp 98.6 F 11/20/19 10:05 Pulse 112 H 11/20/19 10:05 Resp 17 11/20/19 10:05 BP 91/64 11/20/19 10:05 Pulse Ox 96 11/20/19 08:00 Intake & Output 11/19/19 11/19/19 11/20/19 11:59 23:59 11:59 Intake Total 344 249 4759 Output Total 0 1200 900 Balance 910 -670 220 Weight 106 lb 11.2 oz Intake: IV 860 480 770 Cardizem Injection - 125 50 mg In D5w - 100 ml @ 5 MG /HR 5 mls/hr IVPB TITR MEGHANN Rx#:[id number] D5-1/2Ns - 1,000 ml @ 60 360 480 720 mls/hr IV ASDIR MEGHANN Rx#: [id number] Normal Saline - 500 ml @ 500 500 mls/hr IV ASDIR STA Rx#:[id number] IVPB 50 50 350 Output: Gastric Drainage 1000 900 Urine 0 Void 0 Emesis 200 Other: Voiding Method Diaper Diaper Diaper # Unmeasured Voids Void 1 2 2 Bowel Movement No No Height 5 ft 5 in Body Mass Index (BMI) 17.7 Weight Measurement Method Built in [facility] nad no jvd irreg tachy s1s2 no mrg ctabl poor eff lethargic abd nd pos bs no jaundice diaphoresis +dp pt no carotid bruit no le e/c/c Laboratory Last Values WBC 7.5 K/mm3 (4.0-10.0) 11/20/19 05:40 RBC 4.03 M/mm3 (4.00-5.60) 11/20/19 05:40 Hgb 12.1 GM/dL (11.7-16.9) 11/20/19 05:40 Hct 37.0 % (35.4-49) 11/20/19 05:40 MCV 91.7 fl (80-96) 11/20/19 05:40 MCH 30.0 pg (25.7-33.7) 11/20/19 05:40 MCHC 32.7 g/dl (32.0-35.9) 11/20/19 05:40 RDW 17.1 % (11.9-15.9) H 11/20/19 05:40 Plt Count 200 K/MM3 (134-434) 11/20/19 05:40 MPV 8.4 fl (7.5-11.1) 11/20/19 05:40 Absolute Neuts (auto) 5.9 K/mm3 (1.5-8.0) 11/20/19 05:40 Neutrophils % 78.6 % (42.8-82.8) 11/20/19 05:40 Neutrophils % (Manual) 68.0 % (42.8-82.8) D 11/20/19 05:40 Band Neutrophils % 16.0 % 11/20/19 05:40 Lymphocytes % 15.2 % (8-40) 11/20/19 05:40 Lymphocytes % (Manual) 11.0 % (8-40) D 11/20/19 05:40 Monocytes % 5.9 % (3.8-10.2) 11/20/19 05:40 Monocytes % (Manual) 4 % (3.8-10.2) 11/20/19 05:40 Eosinophils % 0.3 % (0-4.5) D 11/20/19 05:40 Eosinophils % (Manual) 1.0 % (0-4.5) D 11/20/19 05:40 Basophils % 0.0 % (0-2.0) 11/20/19 05:40 Basophils % (Manual) 0.0 % (0-2.0) 11/20/19 05:40 Myelocytes % (Man) 0 % (0-2) 11/20/19 05:40 Promyelocytes % (Man) 0 % (0-2) 11/20/19 05:40 Blast Cells % (Manual) 0 % (0-0) 11/20/19 05:40 Nucleated RBC % 1 % (0-0) H 11/20/19 05:40 Metamyelocytes 0 % (0-2) D 11/20/19 05:40 Hypochromia 0 11/20/19 05:40 Toxic Granulation 0 11/18/19 17:20 Dohle Bodies 0 11/18/19 17:20 Platelet Estimate Normal 11/20/19 05:40 Polychromasia 0 11/20/19 05:40 Poikilocytosis 2+ 11/20/19 05:40 Basophilic Stippling 0 11/18/19 17:20 Anisocytosis 1+ 11/20/19 05:40 Microcytosis 1+ 11/20/19 05:40 Macrocytosis 0 11/20/19 05:40 Spherocytes 0 11/18/19 17:20 Sickle Cells 0 11/18/19 17:20 Target Cells 0 11/18/19 17:20 Tear Drop Cells 0 11/18/19 17:20 Ovalocytes 0 11/18/19 17:20 Stomatocytes 0 11/18/19 17:20 Helmet Cells 0 11/18/19 17:20 Guerrero-[place] Bodies 0 11/18/19 17:20 [place] Rings 0 11/18/19 17:20 [place] Cells 2+ 11/20/19 05:40 Acanthocytes (Spur) 0 11/18/19 17:20 Rouleaux 0 11/18/19 17:20 Fragmented RBCs 0 11/18/19 17:20 Schistocytes 0 11/18/19 17:20 Retic Count 0.81 % (0.5-1.5) 11/18/19 17:20 PT with INR 14.10 SEC (9.7-13.0) H 11/18/19 23:12 INR 1.19 (0.83-1.09) H 11/18/19 23:12 PTT (Actin FS) 28.7 SECONDS (25.2-36.5) 11/18/19 17:20 Sodium 139 mmol/L (136-145) 11/20/19 05:40 Potassium 3.4 mmol/L (3.5-5.1) L 11/20/19 05:40 Chloride 105 mmol/L (98-107) 11/20/19 05:40 Carbon Dioxide 27 mmol/L (21-32) 11/20/19 05:40 Anion Gap 6 MMOL/L (8-16) L 11/20/19 05:40 BUN 39.2 mg/dL (7-18) H 11/20/19 05:40 Creatinine 1.4 mg/dL (0.55-1.3) H 11/20/19 05:40 Est GFR (CKD-EPI)AfAm 55.77 11/20/19 05:40 Est GFR (CKD-EPI)NonAf 48.12 11/20/19 05:40 POC Glucometer 150 UNITS (80-120) 11/20/19 00:25 Random Glucose 190 mg/dL (74-106) H 11/20/19 05:40 Lactic Acid 1.7 mmol/L (0.4-2.0) 11/19/19 09:05 Calcium 8.2 mg/dL (8.5-10.1) L 11/20/19 05:40 Magnesium 2.2 mg/dL (1.8-2.4) 11/20/19 05:40 Total Bilirubin 1.4 mg/dL (0.2-1) H 11/20/19 05:40 AST 13 U/L (15-37) L 11/20/19 05:40 ALT 16 U/L (13-61) 11/20/19 05:40 Alkaline Phosphatase 63 U/L (45-117) 11/20/19 05:40 Creatine Kinase 52 U/L (26-308) 11/18/19 17:20 Troponin I < 0.02 ng/ml (0.00-0.05) 11/18/19 17:20 Total Protein 5.8 g/dl (6.4-8.2) L 11/20/19 05:40 Albumin 2.6 g/dl (3.4-5.0) L 11/20/19 05:40 TSH 14.80 uIU/ml (0.358-3.74) H 11/19/19 05:30 COVID-19 (SOPHIA) Not detected (Not Detected) 11/18/19 18:00 Blood Type A NEGATIVE 11/18/19 17:20 Antibody Screen Negative 11/18/19 17:20 tele: afib, cr 110s-130s cxr: +pna ecg: afib with rvr, nl qtc, no ischemic changes est cct 35 mins a/p: 79 m hx dementia, htn, hypothyroid, sent from me for coffee ground emesis. GIB: -hgb stable, GI consulted sbo: -surgery consulted, conservative therapy for now afib: -rvr at times but also with hypotension, currently tolerating dilt gtt, cont for now -cont ivfs for bp support -no AC for now given GIB -cont tele -check echo pna: -on abx per ID
--- NOTE | 2019-11-20 12:02 | PN ---
Progress Note (short form) - Note Progress Note: events noted elevated HR low BP pt is non verbal nauseous+, gagging NGT in place black secretion+ increased amount+ Vital Signs - 24 hr 11/19/19 11/19/19 11/19/19 14:00 17:24 18:00 Temperature 99.0 F 99.2 F Pulse Rate 88 110 H 111 H Respiratory 15 16 20 Rate Blood Pressure 117/92 119/85 119/85 O2 Sat by Pulse 92 L 96 Oximetry (%) 11/19/19 11/19/19 11/20/19 20:00 22:00 00:00 Temperature 98.9 F Pulse Rate 108 H 102 H 107 H Respiratory 20 18 20 Rate Blood Pressure 140/98 126/78 118/78 O2 Sat by Pulse 96 96 96 Oximetry (%) 11/20/19 11/20/19 11/20/19 00:30 02:00 04:00 Temperature 98.9 F Pulse Rate 150 H 126 H 139 H Respiratory 20 20 Rate Blood Pressure 104/70 83/60 L 84/69 L O2 Sat by Pulse 95 94 L Oximetry (%) 11/20/19 11/20/19 11/20/19 05:51 06:10 08:00 Temperature 98.7 F Pulse Rate 144 H 116 H 114 H Respiratory 17 17 Rate Blood Pressure 98/40 L 83/66 L 82/67 L O2 Sat by Pulse 95 96 Oximetry (%) 11/20/19 11/20/19 10:05 11:47 Temperature 98.6 F Pulse Rate 112 H 110 H Respiratory 17 17 Rate Blood Pressure 91/64 111/63 O2 Sat by Pulse Oximetry (%) Intake & Output 11/17/19 11/18/19 11/19/19 11/20/19 23:59 23:59 23:59 23:59 Intake Total 1440 1120 Output Total 1200 900 Balance 240 220 Weight 119 lb 8 oz 106 lb 11.2 oz Current Medications Generic Name Dose Route Start Last Admin Trade Name Freq PRN Reason Stop Dose Admin Dextrose/Sodium Chloride 1,000 mls @ 60 mls/hr 11/19/19 00:45 11/20/19 01:27 D5-1/2ns - IV 60 mls/hr ASDIR MEGHANN Administration Piperacillin Sod/Tazobactam 50 mls @ 100 mls/hr 11/19/19 21:00 11/20/19 09:07 Sod 2.25 gm/ Dextrose IVPB 100 mls/hr Q6H-IV MEGHANN Administration Protocol Diltiazem HCl 125 mg/ Dextrose 125 mls @ 5 mls/hr 11/20/19 02:00 11/20/19 05:51 IVPB 5 mg/hr TITR MEGHANN 5 mls/hr Administration Protocol 5 MG/HR Metoprolol Tartrate 5 mg 11/20/19 00:37 Lopressor Injection - IVPUSH Q4H PRN TACHYCARDIA Ondansetron HCl 4 mg 11/20/19 10:41 Zofran Injection IVPUSH Q6H PRN NAUSEA AND/OR VOMITING Pantoprazole Sodium 40 mg 11/20/19 10:00 11/20/19 09:18 Protonix Iv IVPUSH 40 mg DAILY MEGHANN Administration Laboratory Results - last 24 hr 11/18/19 11/19/19 11/19/19 18:00 05:30 18:17 WBC RBC Hgb Hct MCV MCH MCHC RDW Plt Count MPV Absolute Neuts (auto) Neutrophils % Neutrophils % (Manual) 31.8 L D Band Neutrophils % 42.0 Lymphocytes % Lymphocytes % (Manual) 14.8 D Monocytes % Monocytes % (Manual) 7 Eosinophils % Eosinophils % (Manual) 0.0 Basophils % Basophils % (Manual) 0.0 Myelocytes % (Man) 0 D Promyelocytes % (Man) 0 Blast Cells % (Manual) 0 Nucleated RBC % 0 Metamyelocytes 2 D Hypochromia 0 Platelet Estimate Normal Polychromasia 1+ Poikilocytosis 0 Anisocytosis 1+ Microcytosis Macrocytosis 0 Turner Cells 2+ Sodium Potassium Chloride Carbon Dioxide Anion Gap BUN Creatinine Est GFR (CKD-EPI)AfAm Est GFR (CKD-EPI)NonAf POC Glucometer 119 Random Glucose Calcium Magnesium Total Bilirubin AST ALT Alkaline Phosphatase Total Protein Albumin COVID-19 (SOPHIA) Not detected 11/20/19 11/20/19 11/20/19 00:25 05:40 05:40 WBC 7.5 RBC 4.03 Hgb 12.1 Hct 37.0 MCV 91.7 MCH 30.0 MCHC 32.7 RDW 17.1 H Plt Count 200 MPV 8.4 Absolute Neuts (auto) 5.9 Neutrophils % 78.6 Neutrophils % (Manual) 68.0 D Band Neutrophils % 16.0 Lymphocytes % 15.2 Lymphocytes % (Manual) 11.0 D Monocytes % 5.9 Monocytes % (Manual) 4 Eosinophils % 0.3 D Eosinophils % (Manual) 1.0 D Basophils % 0.0 Basophils % (Manual) 0.0 Myelocytes % (Man) 0 Promyelocytes % (Man) 0 Blast Cells % (Manual) 0 Nucleated RBC % 1 H Metamyelocytes 0 D Hypochromia 0 Platelet Estimate Normal Polychromasia 0 Poikilocytosis 2+ Anisocytosis 1+ Microcytosis 1+ Macrocytosis 0 Sherri Cells 2+ Sodium 139 Potassium 3.4 L Chloride 105 Carbon Dioxide 27 Anion Gap 6 L BUN 39.2 H Creatinine 1.4 H Est GFR (CKD-EPI)AfAm 55.77 Est GFR (CKD-EPI)NonAf 48.12 POC Glucometer 150 Random Glucose 190 H Calcium 8.2 L Magnesium 2.2 Total Bilirubin 1.4 H AST 13 L ALT 16 Alkaline Phosphatase 63 Total Protein 5.8 L Albumin 2.6 L COVID-19 (SOPHIA) S1 S2 RRR, tachycardic Lungs decreased cachetic Abd- soft ,tender+,no BS No edema A/P Sepsis severe malnutrition high grade partial SBO dementia aspiration pneumonia --- iv fluids -- was on cardizem drip - now on Lopressor prn-- pt's BP lower side -- iv antibiotics -- surgical eval noted -- supportive care -- pt is DNR/DNI -- replace potassium -- spoke with pt's daughter-- apparently same issue beginning of this year and was admitted in [facility]-- was not getting better and transferred to [facility]-- but then slowly recovered and she transferred him to [facility] -- I explained that at this state, with his BP low, respiratory failure, pneumonia,malnurished, high grade SBO - most likely would not recover and would not do well during surgery and even afterwards- she understood and is not insisting on surgery -- pt remains DNR/DNI -- palliative care on the case Problem List - Problems (1) Dementia Code(s): F03.90 - UNSPECIFIED DEMENTIA WITHOUT BEHAVIORAL DISTURBANCE (2) GI bleed Code(s): K92.2 - GASTROINTESTINAL HEMORRHAGE, UNSPECIFIED (3) HTN (hypertension) Code(s): I10 - ESSENTIAL (PRIMARY) HYPERTENSION (4) Pneumonia Code(s): J18.9 - PNEUMONIA, UNSPECIFIED ORGANISM Qualifiers: Pneumonia type: aspiration pneumonia Laterality: unspecified laterality Lung location: unspecified part of lung Qualified Code(s): J18.9 - Pneumonia, unspecified organism (5) SBO (small bowel obstruction) Code(s): K56.609 - UNSP INTESTNL OBST, UNSP TO PARTIAL VERSUS COMPLETE OBST
[2019-11-20 13:01] VITALS: BMI 17.6
--- NOTE | 2019-11-20 16:45 | ECHO ---
Name: TATO SEYMOURDEBORAH Exam:Adult Echocardiogram Study Date: 11/20/2019 01:51 PM Age: 79 yrs Reason For Study: A-Fib Height: 65 in Weight: 106 lb BSA: 1.5 m2 BP: 104/75 mmHg MMode/2D Measurements & Calculations RVDd: 3.0 cm Ao root diam: 3.5 cm IVSd: 0.97 cm LA dimension: 3.6 cm LVIDd: 4.0 cm ACS: 1.6 cm LVIDs: 2.5 cm LVPWd: 1.1 cm EDV(Teich): 70.4 ml LVOT diam: 2.3 cm ESV(Teich): 22.8 ml LAV (MOD-bp): 43.0 ml TAPSE: 1.2 cm RV S Wood: 13.1 cm/sec Doppler Measurements & Calculations MV E max wood: 128.3 cm/sec Ao V2 max: 149.3 cm/sec MV dec time: 0.24 sec Ao max P.9 mmHg Ao V2 mean: 104.0 cm/sec Ao mean P.1 mmHg Ao V2 VTI: 19.0 cm CAROLYN(I,D): 10.0 cm2 CAROLYN(V,D): 8.2 cm2 LV V1 max P.4 mmHg SV(LVOT): 189.8 ml LV V1 mean P.3 mmHg LV V1 max: 293.2 cm/sec LV V1 mean: 189.8 cm/sec LV V1 VTI: 45.4 cm TR max wood: 210.4 cm/sec PA V2 max: 92.3 cm/sec TR max P.7 mmHg PA max P.4 mmHg PA acc slope: 965.7 cm/sec2 PA acc time: 0.10 sec Med Peak E' Wood: 5.5 cm/sec PA pr(Accel): 36.2 mmHg Med E/e': 23.5 Lat Peak E' Wood: 9.6 cm/sec Lat E/e': 13.4 Procedure A complete two-dimensional transthoracic echocardiogram was performed (2D, M-mode, Doppler and color flow Doppler). Left Ventricle The left ventricular size, thickness and function are normal. Ejection Fraction = 65-70%. The left ve ntricular wall motion is normal. Right Ventricle The right ventricle is normal in size and function. Atria Normal left and right atrial size and function. Mitral Valve There is no mitral regurgitation noted. Tricuspid Valve There is trace tricuspid regurgitation. There was insufficient TR detected to calculate RV systolic p ressure. Aortic Valve No hemodynamically significant valvular aortic stenosis. No aortic regurgitation is present. Pulmonic Valve There is no pulmonic valvular regurgitation. Great Vessels The aortic root is normal size. Pericardium/Pleura There is no pericardial effusion. Interpretation Summary The left ventricular size, thickness and function are normal The right ventricle is normal in size and function. There is trace tricuspid regurgitation. MD Hany Radford 11/20/2019 04:45 PM
[2019-11-21] MEDS ORDERED: PIPERACILLIN/TAZOBACTAM 2.25 GM VIAL IVPB ONE ×5 (02:11→20:06)
[2019-11-21] MEDS ORDERED: DEXTROSE 5%-WATER - 50 ML IVPB ONE ×5 (02:11→20:06)
[2019-11-21] MEDS: DEXTROSE 5%-0.45% SALINE 1,000 ML IV SCH (02:18)
[2019-11-21] MEDS: PIPERACILLIN/TAZOB 2.25 GM 2.25 GM in DEXTROSE 5%-WATER - 50 ML IVPB SCH ×4 (02:19→20:37)
[2019-11-21] MEDS: ONDANSETRON 4 MG/2 ML VIAL IVPUSH PRN (02:49)
[2019-11-21] MEDS: DILTIAZEM INJECTION 125 MG in DEXTROSE 5%-WATER - 100 ML IVPB SCH (03:30)
--- NOTE | 2019-11-21 05:43 | PN ---
Progress Note, Physician Chief Complaint: [facility] [facility] hpi: hx from charts, pt with severe dementia. 79 m hx dementia, htn, hypothyroid, [facility]. Found to have pna, sbo, and afib with rvr as well, currently in ICU. pmh: per hpi psh: unknown social: unknown ros: n/a 2/2 dementia fam: unknown meds: This AM, BP soft 90s systolic TELE: AF, rate low 100s on Cardizem gtts Unable to answer questions History of Present Illness: BP low, respiratory failure, pneumonia, malnurished, high grade SBO Code status noted: DNR/DNI - Current Medication List Current Medications: Active Medications Dextrose/Sodium Chloride (D5-1/2ns -) 1,000 mls @ 60 mls/hr IV ASDIR MEGHANN Last Admin: 11/21/19 02:18 Dose: 60 mls/hr Documented by: Piperacillin Sod/Tazobactam (Sod 2.25 gm/ Dextrose) 50 mls @ 100 mls/hr IVPB Q6H-IV MEGHANN; Protocol Last Admin: 11/21/19 02:19 Dose: 100 mls/hr Documented by: Diltiazem HCl 125 mg/ Dextrose 125 mls @ 5 mls/hr IVPB TITR MEGHANN; Protocol Last Admin: 11/21/19 03:30 Dose: 10 mg/hr, 10 mls/hr Documented by: Metoprolol Tartrate (Lopressor Injection -) 5 mg IVPUSH Q4H PRN PRN Reason: TACHYCARDIA Ondansetron HCl (Zofran Injection) 4 mg IVPUSH Q6H PRN PRN Reason: NAUSEA AND/OR VOMITING Last Admin: 11/21/19 02:49 Dose: 4 mg Documented by: Pantoprazole Sodium (Protonix Iv) 40 mg IVPUSH DAILY MEGHANN Last Admin: 11/20/19 09:18 Dose: 40 mg Documented by: - Objective Vital Signs: Vital Signs Temperature 98.5 F 11/20/19 19:19 Pulse Rate 99 H 11/21/19 03:30 Respiratory Rate 18 11/21/19 00:00 Blood Pressure 86/65 L 11/21/19 03:30 O2 Sat by Pulse Oximetry (%) 94 L 11/21/19 00:00 Eyes: Yes: Conjunctiva Clear Cardiovascular: Yes: Pulse Irregular Respiratory: Yes: CTA Bilaterally Gastrointestinal: Yes: Soft (NT: NGT with black fluid draining) Edema: No Neurological: Yes: Lethargy Labs: CBC, BMP 11/20/19 05:40 11/20/19 05:40 INR, PTT INR 1.19 (0.83-1.09) H 11/18/19 23:12 Laboratory Tests 11/18/19 11/20/19 11/21/19 23:12 05:40 05:40 WBC 9.9 Hgb 12.1 11.4 L Plt Count 197 INR 1.19 H Sodium Potassium Creatinine Magnesium 11/21/19 05:40 WBC Hgb Plt Count INR Sodium 138 Potassium 3.6 Creatinine 1.0 Magnesium 2.0 - ....Imaging EKG: Image Reviewed Assessment/Plan DATA: ecg: afib with rvr, nl qtc, no ischemic changes a/p: 79 m hx severe dementia, htn, hypothyroid, [facility]. GIB: -hgb stable, GI consulted sbo: -surgery consulted, conservative therapy for now afib: -rvr at times but also with hypotension, currently tolerating dilt gtt, cont for now; average rate in high 90s-low 100s -cont ivfs for bp support -no AC for now given GIB -cont tele -echo this admission with normal biV function and no sig valve disease pna: aspiration -on abx per ID
[2019-11-21 07:25] LABS: HEMATOCRIT 34.2 % (35.4-49); HEMOGLOBIN 11.4 GM/dL (11.7-16.9); MCH 30.3 pg (25.7-33.7); MCHC 33.3 g/dl (32.0-35.9); MEAN CELL VOLUME 91.1 fl (80-96); MEAN PLT VOLUME 8.3 fl (7.5-11.1); PLATELET COUNT 197 K/MM3 (134-434); RBC 3.76 M/mm3 (4.00-5.60); RDW 16.6 % (11.9-15.9); WHITE BLOOD COUNT 9.9 K/mm3 (4.0-10.0)
[2019-11-21 08:06] LABS: POTASSIUM 3.6 mmol/L (3.5-5.1)
[2019-11-21 08:24] LABS: BLOOD UREA NITROGEN 25.2 mg/dL (7-18); CALCIUM 8.2 mg/dL (8.5-10.1)
[2019-11-21] MEDS: PANTOPRAZOLE SODIUM 40 MG VIAL IVPUSH SCH (09:03)
--- NOTE | 2019-11-21 09:56 | PN ---
Progress Note, Physician History of Present Illness: Pt seen/ Examined in icu today. Chart is reviewed On May scott. Lethargic/ poorly responsive. - Current Medication List Current Medications: Active Medications Dextrose/Sodium Chloride (D5-1/2ns -) 1,000 mls @ 60 mls/hr IV ASDIR MEGHANN Last Admin: 11/21/19 02:18 Dose: 60 mls/hr Documented by: Piperacillin Sod/Tazobactam (Sod 2.25 gm/ Dextrose) 50 mls @ 100 mls/hr IVPB Q6H-IV MEGHANN; Protocol Last Admin: 11/21/19 09:03 Dose: 100 mls/hr Documented by: Diltiazem HCl 125 mg/ Dextrose 125 mls @ 5 mls/hr IVPB TITR MEGHANN; Protocol Last Titration: 11/21/19 09:12 Dose: 5 mg/hr, 5 mls/hr Documented by: Metoprolol Tartrate (Lopressor Injection -) 5 mg IVPUSH Q4H PRN PRN Reason: TACHYCARDIA Ondansetron HCl (Zofran Injection) 4 mg IVPUSH Q6H PRN PRN Reason: NAUSEA AND/OR VOMITING Last Admin: 11/21/19 02:49 Dose: 4 mg Documented by: Pantoprazole Sodium (Protonix Iv) 40 mg IVPUSH DAILY MEGHANN Last Admin: 11/21/19 09:03 Dose: 40 mg Documented by: - Objective Vital Signs: Vital Signs Temperature 97.9 F 11/21/19 06:00 Pulse Rate 72 11/21/19 09:12 Respiratory Rate 14 11/21/19 06:00 Blood Pressure 90/60 11/21/19 09:12 O2 Sat by Pulse Oximetry (%) 95 11/21/19 06:00 HENT: Yes: Other (NGT+) Neck: Yes: Supple Cardiovascular: Yes: Pulse Irregular Respiratory: Yes: Diminished Gastrointestinal: Yes: Soft Edema: No Labs: CBC, BMP 11/21/19 05:40 11/21/19 05:40 INR, PTT INR 1.19 (0.83-1.09) H 11/18/19 23:12 Problem List - Problems (1) Afib Code(s): I48.91 - UNSPECIFIED ATRIAL FIBRILLATION (2) Pneumonia Code(s): J18.9 - PNEUMONIA, UNSPECIFIED ORGANISM Qualifiers: Pneumonia type: aspiration pneumonia Laterality: unspecified laterality Lung location: unspecified part of lung Qualified Code(s): J18.9 - Pneumonia, unspecified organism (3) SBO (small bowel obstruction) Code(s): K56.609 - UNSP INTESTNL OBST, UNSP TO PARTIAL VERSUS COMPLETE OBST Assessment/Plan A/P Problems as listed. Aspiration Pneumonia. severe malnutrition high grade partial SBO dementia Continue present care -- cardizem drip - -- iv antibiotics -- surgical team following -- supportive care -- pt is DNR/DNI -- prognosis poor / gaurded -- palliative care on the case - will continue to follow - d/w Rn also -- cc time 35 min.
--- NOTE | 2019-11-21 10:31 | PN ---
Progress Note (short form) - Note Progress Note: remains lethargic Vital Signs Period Temp Pulse Resp BP Sys/Fry Pulse Ox Last 24 Hr 97.9 F-98.6 F 72-110 14-19 78-111/52-95 93-96 ngt- black drainage cor-rrr lungs decreased bs at bases abd firm ext no edema CBC, BMP 11/21/19 05:40 11/21/19 05:40 Microbiology 11/18/19 23:12 Blood - Peripheral Venous Blood Culture - Preliminary NO GROWTH OBTAINED AFTER 48 HOURS, INCUBATION TO CONTINUE FOR 3 DAYS. 11/18/19 23:12 Blood - Peripheral Venous Blood Culture - Preliminary NO GROWTH OBTAINED AFTER 48 HOURS, INCUBATION TO CONTINUE FOR 3 DAYS. Active Medications Dextrose/Sodium Chloride (D5-1/2ns -) 1,000 mls @ 60 mls/hr IV ASDIR MEGHANN Last Admin: 11/21/19 02:18 Dose: 60 mls/hr Documented by: Piperacillin Sod/Tazobactam (Sod 2.25 gm/ Dextrose) 50 mls @ 100 mls/hr IVPB Q6H-IV MEGHANN; Protocol Last Admin: 11/21/19 09:03 Dose: 100 mls/hr Documented by: Diltiazem HCl 125 mg/ Dextrose 125 mls @ 5 mls/hr IVPB TITR MEGHANN; Protocol Last Titration: 11/21/19 09:12 Dose: 5 mg/hr, 5 mls/hr Documented by: Metoprolol Tartrate (Lopressor Injection -) 5 mg IVPUSH Q4H PRN PRN Reason: TACHYCARDIA Ondansetron HCl (Zofran Injection) 4 mg IVPUSH Q6H PRN PRN Reason: NAUSEA AND/OR VOMITING Last Admin: 11/21/19 02:49 Dose: 4 mg Documented by: Pantoprazole Sodium (Protonix Iv) 40 mg IVPUSH DAILY MEGHANN Last Admin: 11/21/19 09:03 Dose: 40 mg Documented by: a/p SBO probable aspiration pneumonia-day #3 zosyn to continue for now afib on diltiazem drip bee resolved dnr/dni palliative care discussion in probress afib dnr/dni Problem List - Problems (1) SBO (small bowel obstruction) Code(s): K56.609 - UNSP INTESTNL OBST, UNSP TO PARTIAL VERSUS COMPLETE OBST (2) Pneumonia Code(s): J18.9 - PNEUMONIA, UNSPECIFIED ORGANISM Qualifiers: Pneumonia type: aspiration pneumonia Laterality: unspecified laterality Lung location: unspecified part of lung Qualified Code(s): J18.9 - Pneumonia, unspecified organism (3) Dementia Code(s): F03.90 - UNSPECIFIED DEMENTIA WITHOUT BEHAVIORAL DISTURBANCE
[2019-11-21 14:12] LABS: EPI CELLS 24 /uL (0-25.1); HYALINE CASTS 1 /uL (0-3.1); URINE APPEARANCE CLOUDY; URINE BACTERIA 11 /uL (0-1359); URINE BILIRUBIN NEGATIVE (NEGATIVE); URINE COLOR DK YELLOW; URINE GLUCOSE (UA) NEGATIVE (NEGATIVE); URINE KETONE NEGATIVE (NEGATIVE); URINE LEUK ESTERASE NEGATIVE (NEGATIVE); URINE NITRITE NEGATIVE (NEGATIVE); URINE PROTEIN 2+ (NEGATIVE); URINE WBC 16 /uL (0-25.8)
[2019-11-22] MEDS: DEXTROSE 5%-0.45% SALINE 1,000 ML IV SCH (01:36)
[2019-11-22] MEDS ORDERED: DEXTROSE 5%-WATER - 50 ML IVPB ONE ×3 (02:04→17:34)
[2019-11-22] MEDS ORDERED: PIPERACILLIN/TAZOBACTAM 2.25 GM VIAL IVPB ONE ×4 (02:04→20:36)
[2019-11-22] MEDS: PIPERACILLIN/TAZOB 2.25 GM 2.25 GM in DEXTROSE 5%-WATER - 50 ML IVPB SCH ×4 (02:19→20:45)
[2019-11-22] MEDS: PANTOPRAZOLE SODIUM 40 MG VIAL IVPUSH SCH (09:39)
--- NOTE | 2019-11-22 12:23 | PN ---
Progress Note (short form) - Note Progress Note: cc: sent from [facility] for coffee ground emesis hpi: unable to obtain HPI, ROS due to dementia Current Medications Generic Name Dose Route Start Last Admin Trade Name My PRN Reason Stop Dose Admin Dextrose/Sodium Chloride 1,000 mls @ 60 mls/hr 11/19/19 00:45 11/22/19 01:36 D5-1/2ns - IV 60 mls/hr ASDIR MEGHANN Administration Piperacillin Sod/Tazobactam 50 mls @ 100 mls/hr 11/19/19 21:00 11/22/19 09:39 Sod 2.25 gm/ Dextrose IVPB 100 mls/hr Q6H-IV MEGHANN Administration Protocol Diltiazem HCl 125 mg/ Dextrose 125 mls @ 5 mls/hr 11/20/19 02:00 11/21/19 20:48 IVPB 0 mg/hr TITR MEGHANN 0 mls/hr Titration Protocol 5 MG/HR Metoprolol Tartrate 5 mg 11/20/19 00:37 Lopressor Injection - IVPUSH Q4H PRN TACHYCARDIA Ondansetron HCl 4 mg 11/20/19 10:41 11/21/19 02:49 Zofran Injection IVPUSH 4 mg Q6H PRN Administration NAUSEA AND/OR VOMITING Pantoprazole Sodium 40 mg 11/20/19 10:00 11/22/19 09:39 Protonix Iv IVPUSH 40 mg DAILY MEGHANN Administration Vital Signs Period Temp Pulse Resp BP Sys/Fry Pulse Ox Last 24 Hr 97.7 F-100.1 F 72-83 15-22 74-113/55-74 94-96 Eyes: Yes: Conjunctiva Clear Cardiovascular: Yes: Pulse Irregular Respiratory: Yes: CTA Bilaterally Gastrointestinal: Yes: Soft (NT: NGT with black fluid draining) Edema: No Neurological: Yes: Lethargy no jaundice, diaphoresis not agitated Assessment/Plan DATA: ecg: afib with rvr, nl qtc, no ischemic changes a/p: 79 m hx severe dementia, htn, hypothyroid, sent from [facility] for coffee ground emesis. GIB: -hgb stable, GI following sbo: -surgery consulted, conservative therapy for now afib: -rvr at times but also with hypotension, currently tolerating dilt gtt, cont for now; average rate in high 90s-low 100s -cont ivfs for bp support -no AC for now given GIB -cont tele -echo this admission with normal biV function and no sig valve disease pna: aspiration -on abx per ID
--- NOTE | 2019-11-22 13:14 | PN ---
Progress Note (short form) - Note Progress Note: events noted HR controlled Pt pulled out NG tube not in distress Vital Signs - 24 hr 11/21/19 11/21/19 11/21/19 15:46 17:00 19:00 Temperature 98.7 F Pulse Rate 80 77 72 Respiratory 16 15 18 Rate Blood Pressure 87/71 L 97/71 78/69 L O2 Sat by Pulse 95 Oximetry (%) 11/21/19 11/21/19 11/21/19 19:26 20:48 21:00 Temperature 98.8 F Pulse Rate 81 83 Respiratory 18 Rate Blood Pressure 74/55 L 88/74 L O2 Sat by Pulse 96 95 Oximetry (%) 11/21/19 11/22/19 11/22/19 23:00 01:00 02:00 Temperature 99.2 F 100.1 F H Pulse Rate 77 80 77 Respiratory 20 20 20 Rate Blood Pressure 104/74 101/74 84/57 L O2 Sat by Pulse 95 95 Oximetry (%) 11/22/19 11/22/19 11/22/19 03:18 06:00 10:00 Temperature 99.9 F H 97.7 F Pulse Rate 76 82 Respiratory 20 20 22 H Rate Blood Pressure 102/67 113/74 O2 Sat by Pulse 95 95 94 L Oximetry (%) Current Medications Generic Name Dose Route Start Last Admin Trade Name Freq PRN Reason Stop Dose Admin Piperacillin Sod/Tazobactam 50 mls @ 100 mls/hr 11/19/19 21:00 11/22/19 09:39 Sod 2.25 gm/ Dextrose IVPB 100 mls/hr Q6H-IV MEGHANN Administration Protocol Diltiazem HCl 125 mg/ Dextrose 125 mls @ 5 mls/hr 11/20/19 02:00 11/21/19 20:48 IVPB 0 mg/hr TITR MEGHANN 0 mls/hr Titration Protocol 5 MG/HR Amino Acids 1,000 mls @ 84 mls/hr 11/22/19 13:15 Clinimix - IV Q12H MEGHANN Metoprolol Tartrate 5 mg 11/20/19 00:37 Lopressor Injection - IVPUSH Q4H PRN TACHYCARDIA Ondansetron HCl 4 mg 11/20/19 10:41 11/21/19 02:49 Zofran Injection IVPUSH 4 mg Q6H PRN Administration NAUSEA AND/OR VOMITING Pantoprazole Sodium 40 mg 11/20/19 10:00 11/22/19 09:39 Protonix Iv IVPUSH 40 mg DAILY MEGHANN Administration Laboratory Results - last 24 hr 11/21/19 11/21/19 11/21/19 13:00 13:35 19:05 POC Glucometer 125 123 Urine Color Dk yellow Urine Appearance Cloudy Urine pH 6.0 Ur Specific [place] 1.031 Urine Protein 2+ H Urine Glucose (UA) Negative Urine Ketones Negative Urine Blood Negative Urine Nitrite Negative Urine Bilirubin Negative Urine Urobilinogen 1.0 Ur Leukocyte Esterase Negative Urine WBC (Auto) 16 Urine RBC (Auto) 70.0 Urine Casts (Auto) 1 U Epithel Cells (Auto) 24 U Sm Round Cell (Auto) Non seen Urine Bacteria (Auto) 11 11/22/19 11/22/19 07:10 12:32 POC Glucometer 122 119 Urine Color Urine Appearance Urine pH Ur Specific [place] Urine Protein Urine Glucose (UA) Urine Ketones Urine Blood Urine Nitrite Urine Bilirubin Urine Urobilinogen Ur Leukocyte Esterase Urine WBC (Auto) Urine RBC (Auto) Urine Casts (Auto) U Epithel Cells (Auto) U Sm Round Cell (Auto) Urine Bacteria (Auto) Intake & Output 11/19/19 11/20/19 11/21/19 11/22/19 23:59 23:59 23:59 23:59 Intake Total 1440 2590 1265 420 Output Total 1200 1250 50 50 Balance 240 1340 1215 370 Weight 106 lb 11.2 oz 106 lb S1 S2 RRR, tachycardic Lungs decreased cachetic Abd- soft ,tender+,no BS No edema A/P Sepsis severe malnutrition high grade partial SBO dementia aspiration pneumonia --- iv fluids-->change to clinimix -- HR controlled -- iv antibiotics -- surgical eval noted -- supportive care -- pt is DNR/DNI -- palliative care -- recheck FUA Problem List - Problems (1) Dementia Code(s): F03.90 - UNSPECIFIED DEMENTIA WITHOUT BEHAVIORAL DISTURBANCE (2) GI bleed Code(s): K92.2 - GASTROINTESTINAL HEMORRHAGE, UNSPECIFIED (3) HTN (hypertension) Code(s): I10 - ESSENTIAL (PRIMARY) HYPERTENSION (4) Pneumonia Code(s): J18.9 - PNEUMONIA, UNSPECIFIED ORGANISM Qualifiers: Pneumonia type: aspiration pneumonia Laterality: unspecified laterality Lung location: unspecified part of lung Qualified Code(s): J18.9 - Pneumonia, unspecified organism (5) SBO (small bowel obstruction) Code(s): K56.609 - UNSP INTESTNL OBST, UNSP TO PARTIAL VERSUS COMPLETE OBST
[2019-11-22] MEDS: AMINO ACIDS 4.25%/D5W 1,000 ML IV SCH (15:30)
[2019-11-22] MEDS: DILTIAZEM INJECTION 125 MG in DEXTROSE 5%-WATER - 100 ML IVPB SCH (19:42)
[2019-11-23] MEDS ORDERED: PIPERACILLIN/TAZOBACTAM 2.25 GM VIAL IVPB ONE ×4 (03:48→21:29)
[2019-11-23] MEDS ORDERED: DEXTROSE 5%-WATER - 50 ML IVPB ONE ×4 (03:48→21:29)
[2019-11-23] MEDS: AMINO ACIDS 4.25%/D5W 1,000 ML IV SCH ×3 (03:51→15:19)
[2019-11-23] MEDS: PIPERACILLIN/TAZOB 2.25 GM 2.25 GM in DEXTROSE 5%-WATER - 50 ML IVPB SCH ×4 (03:51→21:37)
[2019-11-23 07:04] LABS: BLOOD UREA NITROGEN 13.8 mg/dL (7-18); CREATININE 0.7 mg/dL (0.55-1.3); MAGNESIUM 1.7 mg/dL (1.8-2.4); POTASSIUM 3.1 mmol/L (3.5-5.1)
[2019-11-23] MEDS ORDERED: MAGNESIUM SULF 50% (8.12 MEQ/2 ML-1 GM VIAL) IVPB ONE (08:37)
[2019-11-23] MEDS: PANTOPRAZOLE SODIUM 40 MG VIAL IVPUSH SCH (09:35)
[2019-11-23] MEDS: KCL 10 MEQ IVPB 10 MEQ/100 ML INFUS.BAG IVPB SCH ×3 (09:35→12:36)
--- NOTE | 2019-11-23 11:49 | PN ---
Progress Note (short form) - Note Progress Note: cc: sent [facility] for [facility] ground emesis hpi: unable to obtain HPI, ROS due to dementia Current Medications Generic Name Dose Route Start Last Admin Trade Name My PRN Reason Stop Dose Admin Piperacillin Sod/Tazobactam 50 mls @ 100 mls/hr 11/19/19 21:00 11/23/19 09:35 Sod 2.25 gm/ Dextrose IVPB 100 mls/hr Q6H-IV MEGHANN Administration Protocol Amino Acids 1,000 mls @ 84 mls/hr 11/22/19 14:00 11/23/19 06:18 Clinimix - IV 84 mls/hr Q12H MEGHANN Administration Metoprolol Tartrate 5 mg 11/20/19 00:37 Lopressor Injection - IVPUSH Q4H PRN TACHYCARDIA Ondansetron HCl 4 mg 11/20/19 10:41 11/21/19 02:49 Zofran Injection IVPUSH 4 mg Q6H PRN Administration NAUSEA AND/OR VOMITING Pantoprazole Sodium 40 mg 11/20/19 10:00 11/23/19 09:35 Protonix Iv IVPUSH 40 mg DAILY MEGHANN Administration Vital Signs Period Temp Pulse Resp BP Sys/Fry Pulse Ox Last 24 Hr 97.1 F-98.4 F 82-88 20-20 105-136/63-82 93-96 Eyes: Yes: Conjunctiva Clear Cardiovascular: Yes: Pulse Irregular Respiratory: Yes: CTA Bilaterally Gastrointestinal: Yes: Soft (NT: NGT with black fluid draining) Edema: No Neurological: Yes: Lethargy no jaundice, diaphoresis not agitated Assessment/Plan DATA: ecg: afib with rvr, nl qtc, no ischemic changes tele: sinus a/p: 79 m hx severe dementia, htn, hypothyroid, sent [facility] for [facility] ground emesis. GIB: -hgb stable, GI following sbo: -surgery consulted, conservative therapy afib: -rvr at times but also with hypotension, improved with dilt gtt - now in sinus, stopped diltiazem -no AC for now given GIB -cont tele -echo this admission with normal biV function and no sig valve disease - monitoring on tele pna: aspiration -on abx per ID
--- NOTE | 2019-11-23 16:18 | PN ---
Progress Note (short form) - Note Progress Note: events noted HR controlled Pt pulled out NG tube not in distress Vital Signs - 24 hr 11/22/19 11/22/19 11/22/19 18:24 21:00 22:00 Temperature 97.1 F L 98.4 F Pulse Rate 83 86 Respiratory 20 20 20 Rate Blood Pressure 124/63 131/82 O2 Sat by Pulse 93 L 93 L Oximetry (%) 11/23/19 11/23/19 11/23/19 02:00 06:00 09:00 Temperature 98.1 F 98.2 F Pulse Rate 84 88 Respiratory 20 20 22 H Rate Blood Pressure 136/65 128/77 O2 Sat by Pulse 96 94 L Oximetry (%) 11/23/19 11/23/19 10:00 14:00 Temperature 99 F 98.2 F Pulse Rate 78 85 Respiratory 22 H 20 Rate Blood Pressure 157/67 112/53 L O2 Sat by Pulse 94 L Oximetry (%) Current Medications Generic Name Dose Route Start Last Admin Trade Name Freq PRN Reason Stop Dose Admin Piperacillin Sod/Tazobactam 50 mls @ 100 mls/hr 11/19/19 21:00 11/23/19 15:19 Sod 2.25 gm/ Dextrose IVPB 100 mls/hr Q6H-IV MEGHANN Administration Protocol Amino Acids 1,000 mls @ 84 mls/hr 11/22/19 14:00 11/23/19 15:19 Clinimix - IV Not Given Q12H MEGHANN Metoprolol Tartrate 5 mg 11/20/19 00:37 Lopressor Injection - IVPUSH Q4H PRN TACHYCARDIA Ondansetron HCl 4 mg 11/20/19 10:41 11/21/19 02:49 Zofran Injection IVPUSH 4 mg Q6H PRN Administration NAUSEA AND/OR VOMITING Pantoprazole Sodium 40 mg 11/20/19 10:00 11/23/19 09:35 Protonix Iv IVPUSH 40 mg DAILY MEGHANN Administration Laboratory Results - last 24 hr 11/22/19 11/22/19 11/23/19 17:26 21:30 05:55 Sodium 140 Potassium 3.1 L Chloride 105 Carbon Dioxide 28 Anion Gap 7 L BUN 13.8 Creatinine 0.7 Est GFR (CKD-EPI)AfAm 105.50 Est GFR (CKD-EPI)NonAf 91.03 POC Glucometer 96 111 Random Glucose 106 Calcium 8.0 L Magnesium 1.7 L 11/23/19 11/23/19 06:17 11:47 Sodium Potassium Chloride Carbon Dioxide Anion Gap BUN Creatinine Est GFR (CKD-EPI)AfAm Est GFR (CKD-EPI)NonAf POC Glucometer 115 107 Random Glucose Calcium Magnesium S1 S2 RRR, tachycardic Lungs decreased cachetic Abd- soft ,tender+,no BS No edema A/P Sepsis severe malnutrition high grade partial SBO dementia aspiration pneumonia --- iv fluids-->change to clinimix, add lipids -- HR controlled -- iv antibiotics --daughter does not want to place NG back in -- xray-- high grade SBo -- supportive care -- pt is DNR/DNI -- palliative care-->consider hospice Problem List - Problems (1) Dementia Code(s): F03.90 - UNSPECIFIED DEMENTIA WITHOUT BEHAVIORAL DISTURBANCE (2) GI bleed Code(s): K92.2 - GASTROINTESTINAL HEMORRHAGE, UNSPECIFIED (3) HTN (hypertension) Code(s): I10 - ESSENTIAL (PRIMARY) HYPERTENSION (4) Pneumonia Code(s): J18.9 - PNEUMONIA, UNSPECIFIED ORGANISM Qualifiers: Pneumonia type: aspiration pneumonia Laterality: unspecified laterality L nohelia location: unspecified part of lung Qualified Code(s): J18.9 - Pneumonia, unspecified organism (5) SBO (small bowel obstruction) Code(s): K56.609 - UNSP INTESTNL OBST, UNSP TO PARTIAL VERSUS COMPLETE OBST
[2019-11-23] MEDS: POTASSIUM CHLORIDE 20 MEQ in AMINO ACIDS 4.25%/D5W 1,000 ML IVPB SCH (18:57)
[2019-11-23] MEDS: FAT EMULSIONS 250 ML IV SCH (21:36)
[2019-11-23] MEDS ORDERED: FAT EMULSIONS 20% 250 ML PREMIX INFUS.BAG IV SCH (22:00)
[2019-11-24] MEDS ORDERED: PIPERACILLIN/TAZOBACTAM 2.25 GM VIAL IVPB ONE ×4 (02:39→21:35)
[2019-11-24] MEDS ORDERED: DEXTROSE 5%-WATER - 50 ML IVPB ONE ×4 (02:40→21:36)
[2019-11-24] MEDS: PIPERACILLIN/TAZOB 2.25 GM 2.25 GM in DEXTROSE 5%-WATER - 50 ML IVPB SCH ×4 (03:15→21:42)
[2019-11-24] MEDS: POTASSIUM CHLORIDE 20 MEQ in AMINO ACIDS 4.25%/D5W 1,000 ML IVPB SCH ×2 (04:53→15:56)
[2019-11-24 08:14] LABS: BLOOD UREA NITROGEN 14.6 mg/dL (7-18); CALCIUM 7.8 mg/dL (8.5-10.1); CREATININE 0.6 mg/dL (0.55-1.3); POTASSIUM 3.5 mmol/L (3.5-5.1)
[2019-11-24] MEDS: PANTOPRAZOLE SODIUM 40 MG VIAL IVPUSH SCH (09:20)
--- NOTE | 2019-11-24 10:56 | PN ---
Progress Note, Physician History of Present Illness: Pt seen/ Examined Chart is reviewed all follow-ups noted Awake Looks comfortable No distress - Current Medication List Current Medications: Active Medications Piperacillin Sod/Tazobactam (Sod 2.25 gm/ Dextrose) 50 mls @ 100 mls/hr IVPB Q6H-IV MEGHANN; Protocol Last Admin: 11/24/19 09:20 Dose: 100 mls/hr Documented by: Potassium Chloride 20 meq/ (Amino Acids) 1,010 mls @ 84 mls/hr IVPB Q12H MEGHANN Last Admin: 11/24/19 04:53 Dose: 84 mls/hr Documented by: Fat Emulsion Intravenous (Intralipid -) 250 mls @ 20.833 mls/hr IV DAILY@2200 MEGHANN Last Admin: 11/23/19 21:36 Dose: 20.833 mls/hr Documented by: Metoprolol Tartrate (Lopressor Injection -) 5 mg IVPUSH Q4H PRN PRN Reason: TACHYCARDIA Ondansetron HCl (Zofran Injection) 4 mg IVPUSH Q6H PRN PRN Reason: NAUSEA AND/OR VOMITING Last Admin: 11/21/19 02:49 Dose: 4 mg Documented by: Pantoprazole Sodium (Protonix Iv) 40 mg IVPUSH DAILY [facility] Last Admin: 11/24/19 09:20 Dose: 40 mg Documented by: - Objective Vital Signs: Vital Signs Temperature 97.9 F 11/24/19 09:21 Pulse Rate 84 11/24/19 09:21 Respiratory Rate 18 11/24/19 09:21 Blood Pressure 111/67 11/24/19 09:21 O2 Sat by Pulse Oximetry (%) 96 11/24/19 09:57 Constitutional: Yes: No Distress Neck: Yes: Supple Cardiovascular: Yes: Pulse Irregular Respiratory: Yes: Diminished Gastrointestinal: Yes: Soft (mild diffuse generalized tenderness) Labs: CBC, BMP 11/21/19 05:40 11/24/19 06:00 INR, PTT INR 1.19 (0.83-1.09) H 11/18/19 23:12 - ....Imaging X-ray: Report Reviewed Problem List - Problems (1) Afib Code(s): I48.91 - UNSPECIFIED ATRIAL FIBRILLATION (2) Pneumonia Code(s): J18.9 - PNEUMONIA, UNSPECIFIED ORGANISM Qualifiers: Pneumonia type: aspiration pneumonia Laterality: unspecified laterality Lung location: unspecified part of lung (3) SBO (small bowel obstruction) Code(s): K56.609 - UNSP INTESTNL OBST, UNSP TO PARTIAL VERSUS COMPLETE OBST Assessment/Plan assessment and plan Sepsis severe malnutrition high grade partial SBO dementia aspiration pneumonia --- iv clinimix, -- HR controlled -- iv antibiotics --daughter does not want to place NG back in -- xray-- high grade SBo -- supportive care -- pt is DNR/DNI -- palliative care-->consider hospice palliative team on case Will continue to follow Can d/c telemetry Discussed with nursing staff also
--- NOTE | 2019-11-24 11:06 | PN ---
Progress Note (short form) - Note Progress Note: cc: sent from [place] for coffee ground emesis hpi: unable to obtain HPI, ROS due to dementia Current Medications Generic Name Dose Route Start Last Admin Trade Name My PRN Reason Stop Dose Admin Piperacillin Sod/Tazobactam 50 mls @ 100 mls/hr 11/19/19 21:00 11/24/19 09:20 Sod 2.25 gm/ Dextrose IVPB 100 mls/hr Q6H-IV MEGHANN Administration Protocol Potassium Chloride 20 meq/ 1,010 mls @ 84 mls/hr 11/23/19 16:19 11/24/19 04:53 Amino Acids IVPB 84 mls/hr Q12H MEGHANN Administration Fat Emulsion Intravenous 250 mls @ 20.833 mls/hr 11/23/19 22:00 11/23/19 21:36 Intralipid - IV 20.833 mls/hr DAILY@2200 MEGHANN Administration Metoprolol Tartrate 5 mg 11/20/19 00:37 Lopressor Injection - IVPUSH Q4H PRN TACHYCARDIA Ondansetron HCl 4 mg 11/20/19 10:41 11/21/19 02:49 Zofran Injection IVPUSH 4 mg Q6H PRN Administration NAUSEA AND/OR VOMITING Pantoprazole Sodium 40 mg 11/20/19 10:00 11/24/19 09:20 Protonix Iv IVPUSH 40 mg DAILY MEGHANN Administration Vital Signs Period Temp Pulse Resp BP Sys/Fry Pulse Ox Last 24 Hr 97.3 F-98.2 F 79-85 18-20 111-141/53-77 92-96 Eyes: Yes: Conjunctiva Clear Cardiovascular: Yes: Pulse Irregular Respiratory: Yes: CTA Bilaterally Gastrointestinal: Yes: Soft (NT: NGT with black fluid draining) Edema: No Neurological: Yes: Lethargy no jaundice, diaphoresis not agitated CBC, BMP 11/21/19 05:40 11/24/19 06:00 Assessment/Plan DATA: ecg: afib with rvr, nl qtc, no ischemic changes tele: sinus a/p: 79 m hx severe dementia, htn, hypothyroid, sent from [place] for coffee ground emesis. GIB: -hgb stable, GI following sbo: -surgery consulted, conservative therapy afib: -rvr at times but also with hypotension, improved with dilt gtt -now in sinus, stopped diltiazem -no AC for now given GIB -echo this admission with normal biV function and no sig valve disease -monitoring on tele pna: aspiration -on abx per ID
--- NOTE | 2019-11-24 15:49 | PN ---
Progress Note (short form) - Note Progress Note: ngt out hiccups no vomiting on clinimix Vital Signs Period Temp Pulse Resp BP Sys/Fry Pulse Ox Last 24 Hr 97.3 F-98.2 F 79-85 18-20 104-141/66-77 92-96 cor-rrr lungs decreased bs at bases abd soft,mild discomfort to palpation ext no edema CBC, BMP 11/21/19 05:40 11/24/19 06:00 Microbiology 11/18/19 23:12 Blood - Peripheral Venous Blood Culture - Final NO GROWTH AFTER 5 DAYS INCUBATION 11/18/19 23:12 Blood - Peripheral Venous Blood Culture - Final NO GROWTH AFTER 5 DAYS INCUBATION 11/21/19 13:00 Urine - Urine Clean Catch Urine Culture - Final NO GROWTH OBTAINED a/p SBO probable aspiration pneumonia-day # 6/7 zosyn d/c in am afib dnr/dni palliative care discussion in progress afib dnr/dni Problem List - Problems (1) SBO (small bowel obstruction) Code(s): K56.609 - UNSP INTESTNL OBST, UNSP TO PARTIAL VERSUS COMPLETE OBST (2) Pneumonia Code(s): J18.9 - PNEUMONIA, UNSPECIFIED ORGANISM Qualifiers: Pneumonia type: aspiration pneumonia Laterality: unspecified laterality Lung location: unspecified part of lung (3) Dementia Code(s): F03.90 - UNSPECIFIED DEMENTIA WITHOUT BEHAVIORAL DISTURBANCE
[2019-11-24] MEDS: FAT EMULSIONS 250 ML IV SCH (22:45)
[2019-11-25] MEDS ORDERED: DEXTROSE 5%-WATER - 50 ML IVPB ONE ×2 (02:54→08:08)
[2019-11-25] MEDS ORDERED: PIPERACILLIN/TAZOBACTAM 2.25 GM VIAL IVPB ONE ×2 (02:54→08:08)
[2019-11-25] MEDS: PIPERACILLIN/TAZOB 2.25 GM 2.25 GM in DEXTROSE 5%-WATER - 50 ML IVPB SCH ×2 (03:00→10:08)
[2019-11-25] MEDS: POTASSIUM CHLORIDE 20 MEQ in AMINO ACIDS 4.25%/D5W 1,000 ML IVPB SCH ×2 (05:19→18:05)
[2019-11-25] MEDS: PANTOPRAZOLE SODIUM 40 MG VIAL IVPUSH SCH (10:08)
--- NOTE | 2019-11-25 11:32 | PN ---
Progress Note (short form) - Note Progress Note: cc: sent from [place] for coffee ground emesis hpi: unable to obtain HPI, ROS due to dementia Current Medications Generic Name Dose Route Start Last Admin Trade Name My PRN Reason Stop Dose Admin Piperacillin Sod/Tazobactam 50 mls @ 100 mls/hr 11/19/19 21:00 11/25/19 10:08 Sod 2.25 gm/ Dextrose IVPB 100 mls/hr Q6H-IV MEGHANN Administration Protocol Potassium Chloride 20 meq/ 1,010 mls @ 84 mls/hr 11/23/19 16:19 11/25/19 05:19 Amino Acids IVPB 84 mls/hr Q12H MEGHANN Administration Fat Emulsion Intravenous 250 mls @ 20.833 mls/hr 11/23/19 22:00 11/24/19 22:45 Intralipid - IV 20.833 mls/hr DAILY@2200 MEGHANN Administration Metoprolol Tartrate 5 mg 11/20/19 00:37 Lopressor Injection - IVPUSH Q4H PRN TACHYCARDIA Ondansetron HCl 4 mg 11/20/19 10:41 11/21/19 02:49 Zofran Injection IVPUSH 4 mg Q6H PRN Administration NAUSEA AND/OR VOMITING Pantoprazole Sodium 40 mg 11/20/19 10:00 11/25/19 10:08 Protonix Iv IVPUSH 40 mg DAILY MEGHANN Administration Vital Signs Period Temp Pulse Resp BP Sys/Fry Pulse Ox Last 24 Hr 97.4 F-98.1 F 75-95 18-18 97-118/52-71 92-94 Eyes: Yes: Conjunctiva Clear Cardiovascular: Yes: Pulse Irregular Respiratory: Yes: CTA Bilaterally Gastrointestinal: Yes: Soft (NT: NGT with black fluid draining) Edema: No Neurological: Yes: Lethargy no jaundice, diaphoresis not agitated Assessment/Plan DATA: ecg: afib with rvr, nl qtc, no ischemic changes a/p: 79 m hx severe dementia, htn, hypothyroid, sent from [place] for coffee ground emesis. GIB: -hgb stable, GI following sbo: -surgery consulted, conservative therapy afib: -rvr at times but also with hypotension, improved with dilt gtt -now in sinus, stopped diltiazem -no AC for now given GIB -echo this admission with normal biV function and no sig valve disease - has been in sinus, tele dc'ed pna: aspiration -on abx per ID
--- NOTE | 2019-11-25 12:39 | PN ---
Progress Note (short form) - Note Progress Note: events noted HR controlled pt sucking on his finger Vital Signs - 24 hr 11/24/19 11/24/19 11/24/19 14:00 17:35 19:00 Temperature 98.1 F 97.4 F L 97.6 F Pulse Rate 85 95 H 80 Respiratory 18 18 Rate Blood Pressure 104/66 111/64 97/67 O2 Sat by Pulse 94 L Oximetry (%) 11/24/19 11/25/19 11/25/19 21:00 01:00 06:00 Temperature 97.5 F L 97.4 F L Pulse Rate 82 76 Respiratory 18 18 Rate Blood Pressure 118/71 113/57 L O2 Sat by Pulse 94 L 92 L Oximetry (%) 11/25/19 11/25/19 10:00 10:11 Temperature 97.8 F Pulse Rate 75 Respiratory 18 Rate Blood Pressure 102/52 L O2 Sat by Pulse 94 L 94 L Oximetry (%) Current Medications Generic Name Dose Route Start Last Admin Trade Name Freq PRN Reason Stop Dose Admin Piperacillin Sod/Tazobactam 50 mls @ 100 mls/hr 11/19/19 21:00 11/25/19 10:08 Sod 2.25 gm/ Dextrose IVPB 100 mls/hr Q6H-IV MEGHANN Administration Protocol Potassium Chloride 20 meq/ 1,010 mls @ 84 mls/hr 11/23/19 16:19 11/25/19 05:19 Amino Acids IVPB 84 mls/hr Q12H MEGHANN Administration Fat Emulsion Intravenous 250 mls @ 20.833 mls/hr 11/23/19 22:00 11/24/19 22:45 Intralipid - IV 20.833 mls/hr DAILY@2200 MEGHANN Administration Metoprolol Tartrate 5 mg 11/20/19 00:37 Lopressor Injection - IVPUSH Q4H PRN TACHYCARDIA Ondansetron HCl 4 mg 11/20/19 10:41 11/21/19 02:49 Zofran Injection IVPUSH 4 mg Q6H PRN Administration NAUSEA AND/OR VOMITING Pantoprazole Sodium 40 mg 11/20/19 10:00 11/25/19 10:08 Protonix Iv IVPUSH 40 mg DAILY MEGHANN Administration Laboratory Results - last 24 hr 11/24/19 11/25/19 22:56 06:35 POC Glucometer 91 99 S1 S2 RRR, tachycardic Lungs decreased cachetic Abd- soft ,tender+,no BS No edema A/P Sepsis severe malnutrition high grade partial SBO dementia aspiration pneumonia --- iv fluids-->change to clinimix, add lipids -- HR controlled -- iv antibiotics-- will dc today after tonight's dose --daughter does not want to place NG back in -- will speak with daughter about further care-- [facility] can not accept him due to insurance -- xray-- high grade SBo -- supportive care -- pt is DNR/DNI -- palliative care-->consider hospice in [place] Problem List - Problems (1) Dementia Code(s): F03.90 - UNSPECIFIED DEMENTIA WITHOUT BEHAVIORAL DISTURBANCE (2) GI bleed Code(s): K92.2 - GASTROINTESTINAL HEMORRHAGE, UNSPECIFIED (3) HTN (hypertension) Code(s): I10 - ESSENTIAL (PRIMARY) HYPERTENSION (4) Pneumonia Code(s): J18.9 - PNEUMONIA, UNSPECIFIED ORGANISM Qualifiers: Pneumonia type: aspiration pneumonia Laterality: unspecified laterality Lung location: unspecified part of lung (5) SBO (small bowel obstruction) Code(s): K56.609 - UNSP INTESTNL OBST, UNSP TO PARTIAL VERSUS COMPLETE OBST
--- NOTE | 2019-11-25 13:40 | PN ---
Progress Note (short form) - Note Progress Note: no hiccups no fevers not eating, no vomiting Vital Signs Period Temp Pulse Resp BP Sys/Fry Pulse Ox Last 24 Hr 97.4 F-98.1 F 75-95 18-18 97-118/52-71 92-94 cor-rrr lungs clear abd soft,NT ext no edema CBC, BMP 11/21/19 05:40 11/24/19 06:00 Microbiology 11/18/19 23:12 Blood - Peripheral Venous Blood Culture - Final NO GROWTH AFTER 5 DAYS INCUBATION 11/18/19 23:12 Blood - Peripheral Venous Blood Culture - Final NO GROWTH AFTER 5 DAYS INCUBATION 11/21/19 13:00 Urine - Urine Clean Catch Urine Culture - Final NO GROWTH OBTAINED a/p SBO probable aspiration pneumonia-day # 09/08 zosyn willd/c afib dnr/dni palliative care discussion in progress please call back if needed afib dnr/dni Problem List - Problems (1) SBO (small bowel obstruction) Code(s): K56.609 - UNSP INTESTNL OBST, UNSP TO PARTIAL VERSUS COMPLETE OBST (2) Pneumonia Code(s): J18.9 - PNEUMONIA, UNSPECIFIED ORGANISM Qualifiers: Pneumonia type: aspiration pneumonia Laterality: unspecified laterality Lung location: unspecified part of lung (3) Dementia Code(s): F03.90 - UNSPECIFIED DEMENTIA WITHOUT BEHAVIORAL DISTURBANCE
[2019-11-25] MEDS: FAT EMULSIONS 250 ML IV SCH ×3 (23:18→23:33)
[2019-11-26] MEDS: POTASSIUM CHLORIDE 20 MEQ in AMINO ACIDS 4.25%/D5W 1,000 ML IVPB SCH (05:14)
[2019-11-26 09:59] VITALS: BP 98/60; PULSE 75; TEMP 97.6
[2019-11-26] MEDS: PANTOPRAZOLE SODIUM 40 MG VIAL IVPUSH SCH (10:09)
--- NOTE | 2019-11-26 10:34 | DS ---
Physical Examination Vital Signs: Vital Signs Temperature 97.6 F 11/26/19 10:00 Pulse Rate 75 11/26/19 10:00 Respiratory Rate 18 11/26/19 10:00 Blood Pressure 98/60 11/26/19 10:00 O2 Sat by Pulse Oximetry (%) 95 11/26/19 10:00 Constitutional: Yes: No Distress Cardiovascular: Yes: Regular Rate and Rhythm Respiratory: Yes: CTA Bilaterally Gastrointestinal: No: Normal Bowel Sounds Edema: No Labs: CBC, BMP 11/21/19 05:40 11/24/19 06:00 Discharge Summary Problems reviewed: Yes Reason For Visit: SMALL BOWEL OBSTRUCTION,PNEUMONIA Current Active Problems Afib (Acute) BPH (benign prostatic hyperplasia) (Acute) Dementia (Acute) Encounter for screening laboratory testing for COVID-19 virus (Acute) GI bleed (Acute) HTN (hypertension) (Acute) Hypothyroid (Acute) PVD (peripheral vascular disease) (Acute) Pneumonia (Acute) SBO (small bowel obstruction) (Acute) Suspected COVID-19 virus infection (Acute) Hospital Course: admitted for SBO was on NG suction Seen by ID and Surgery placed on iv antibiotics no surgical interventions as pt was not a candidate pt did not recover - and is on hospice care transferred to [facility] for further care will be on IV clinimix and lipid he completed antibiotics for aspiration pneumonia pt is DNR/DNI - Instructions Referrals: Lida Centeno MD [Primary Care Provider] - - Home Medications Comprehensive Discharge Medication List: Ambulatory Orders Cholecalciferol (Vitamin D3) [Vitamin D3] 25 mcg PO DAILY 11/18/19 Amino Acids 4.25%/D5w [Clinimix 4.25%/D5w Solution] 1 ml IVPB Q12H #10 infus.bag 11/26/19 Fat Emulsions [Intralipid -] 250 ml IV DAILY@2200 #1 infus.bag 11/26/19 Pantoprazole Sodium [Protonix IV] 40 mg IVPUSH DAILY #30 vial 11/26/19 Piperacillin/Tazob 2.25 gm [Zosyn -] 2.25 gm IVPB Q6H-IV #3 vial 11/26/19
--- NOTE | 2019-11-26 12:31 | PN ---
Progress Note (short form) - Note Progress Note: cc: sent from [place] for coffee ground emesis hpi: unable to obtain HPI, ROS due to dementia Vital Signs Period Temp Pulse Resp BP Sys/Fry Pulse Ox Last 24 Hr 97.6 F-98.9 F 74-88 18-18 98-120/53-70 94-97 Eyes: Yes: Conjunctiva Clear Cardiovascular: Yes: Pulse Irregular Respiratory: Yes: CTA Bilaterally Gastrointestinal: Yes: Soft (NT: NGT with black fluid draining) Edema: No Neurological: Yes: Lethargy no jaundice, diaphoresis not agitated Assessment/Plan DATA: ecg: afib with rvr, nl qtc, no ischemic changes a/p: 79 m hx severe dementia, htn, hypothyroid, sent from [place] for coffee ground emesis. GIB: -hgb stable, GI following sbo: -surgery consulted, conservative therapy afib: -rvr at times but also with hypotension, improved with dilt gtt -now in sinus, stopped diltiazem -no AC for now given GIB -echo this admission with normal biV function and no sig valve disease pna: aspiration -on abx per ID plan for transfer to [place] for hospice care
== END 2019-11-26 11:51 | disposition hospice, inpatient (51) | DRG 871 ==
LOC: JER 16:03 → JERBED 21:12 → JICU 11-19 00:26 → J4W 11-22 03:14
PROVIDERS: ADMIT Internal Medicine; ATTEND Internal Medicine
PROC: 0D9670Z Drainage of Stomach with Drainage Device, Via Natural or Artificial Opening (ICD-10-PCS; principal; 2019-11-20)
DX: A41.89 Other specified sepsis (principal); E43 Unspecified severe protein-calorie malnutrition; J69.0 Pneumonitis due to inhalation of food and vomit; Z68.1 Body mass index [BMI] 19.9 or less, adult; R64 Cachexia; K92.2 Gastrointestinal hemorrhage, unspecified; K56.690 Other partial intestinal obstruction; N17.9 Acute kidney failure, unspecified; E03.9 Hypothyroidism, unspecified; R13.10 Dysphagia, unspecified; I48.91 Unspecified atrial fibrillation; R62.7 Adult failure to thrive; F03.90 Unspecified dementia, unspecified severity, without behavioral disturbance, psychotic disturbance, mood disturbance, and anxiety; I73.9 Peripheral vascular disease, unspecified; N40.0 Benign prostatic hyperplasia without lower urinary tract symptoms; Z11.59 Encounter for screening for other viral diseases; Z66 Do not resuscitate
CPT/HCPCS: 36415; 71045-TC-FY; 74019-TC-FY; 74176-TC; 74177-TC; 80048; 80053; 81003; 82550; 82962; 83605; 83735; 84443; 84484; 85025; 85027; 85045; 85610; 85730; 86850; 86900; 86901; 87040; 87086; 93005; 93010; 93306-TC; 99285-25; Q9967; U0003